=== PATIENT | male | born 1945 | race Caucasian/White ===

== ENCOUNTER 2017-05-14 13:15 | Outpatient (RCR) | payer OTHER, SELFPAY | END 2017-05-14 23:59 | LOC: PT 13:15 | PROVIDERS: Visit Provider Internal Medicine Cardiovascular Disease | DX: I25.2 Old myocardial infarction (principal) | CPT/HCPCS: 93798 ==

== ENCOUNTER 2020-03-17 16:02 | Emergency (ER) | payer MEDICARE, OTHER, SELFPAY ==
[2020-03-17 16:03] VITALS: BP 160/81; PULSE 84; RESP 17; TEMP 37; O2SAT 95; BMI 31.1
--- NOTE | 2020-03-17 16:08 | XR_ITS ---
PROCEDURE: XR FINGER LT MIN 2V Referring Doctor: Russ Sorto Patient Age:74Y CLINICAL INDICATION: table saw accident. COMPARISON: No exams were available for comparison FINDINGS: There has been amputation soft tissues at the tip of the thumb with associated with amputation of minimal bone distal tuft distal phalanx. Soft tissue dressing in bandages seen about this area. Otherwise note degenerative changes narrowing and sclerosis at the IP joint of thumb most evident at the radial aspect IMPRESSION: Amputation of soft tissues tip of thumb, along with distal tuft of distal phalanx left thumb Dictated by: Kasi Morris MD 03/17/2020 23:41 Kasi Morris MD in [place] 03/17/2020 23:41
--- NOTE | 2020-03-17 16:14 | HMH.EDGENADL ---
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 Go straight to emergency department at [facility] now to be seen by hand surgery. Keep the bandage on and elevate your hand during transport. Referrals: Provider,Referral, [Primary Care Provider] - - Critical Care Critical Care Time: No Attestation: On 03/17/20, the high probability of a clinically significant, sudden or life threatening deterioration of the following system(s) required my full and direct attention, intervention and personal management. The time I documented below is in addition to time spent performing reported procedures but includes the following listed in this critical care notation. Medical Decision Making - Medical Records Medical records reviewed: Yes: I reviewed the patient's medical records. MR Comment: Tetanus immunization at this facility last year - Paul Inquiry Pt receiving controlled substance: No Paul was queried for this patient: Yes Reference #:: [id number] Comment: 1 rx 5 oxycodone 04/12/19 Vital Signs: 03/17/20 16:03 03/17/20 16:59 Temperature 98.6 F Temperature Source Oral Pulse Rate [Right Radial] 84 66 Respiratory Rate 17 20 Blood Pressure [Right Arm] 160/81 H 113/70 Blood Pressure Mean [Right Arm] 107 84 Blood Pressure Source [Right Arm] Automatic Cuff Blood Pressure Position [Right Arm] Sitting 02 Sat by Pulse Oximetry 95 95 Oxygen Delivery Method Room Air - Lab Data Lab Results 03/17/20 16:25: WBC 6.9, RBC 3.75 L, Hgb 11.9 L, Hct 35.6 L, MCV 94.9 H, MCH 31.7 H, MCHC 33.4, RDW 19.7 H, Plt Count 156, MPV 8.6, Neut % (Auto) 66.1, Lymph % (Auto) 21.7, Garza % (Auto) 9.4 H, Eos % (Auto) 2.2, Baso % (Auto) 0.5, Neut # (Auto) 4.6, Lymph # (Auto) 1.5, Garza # (Auto) 0.7, Eos # (Auto) 0.2, Baso # (Auto) 0.0 03/17/20 16:25: Sodium 138, Potassium 4.4, Chloride 105, Carbon Dioxide 24, Anion Gap 13.4, BUN 23 H, Creatinine 1.40 H, Estimated Creat Clear 69, Estimated GFR 50 L, Est GFR ( Amer) 60, Glucose 103 H, Calcium 9.0 Result diagrams: 03/17/20 16:25 03/17/20 16:25 Orders (Tests/Meds): ED MEDICATIONS Generic Name Dose Route Start Last Admin Trade Name Freq PRN Reason Stop Dose Admin Cefazolin Sodium 2 gm/ Sodium 100 mls @ 200 mls/hr 03/17/20 16:53 03/17/20 16:58 Chloride IV 03/17/20 17:22 200 mls/hr ONCE ONE Administration Protocol ORDERS Category Date Time Status XR finger LT min 2V Stat Exams 03/17/20 16:08 Taken - Physician Consults Physician Consulted: Lincoln Time: 17:03 Reason -: Other (Hand surgery) Comment/Response: Transfer to [facility] emergency department. Irrigate wound and apply moist dressing. Medical Decision Narrative: Patient initially refused digital block. At 4:45 PM consents to digital block. General Adult HPI - General Chief complaint: Extremity Injury, Upper Stated complaint: lac left thumb Time Seen by Provider: 03/17/20 16:03 Mode of Arrival: Ambulatory Limitations: No Limitations Description of Symptoms (Recalled from ER Triage Doc. by RN): pt states he cut his left thumb while using a table saw. - History of Present Illness HPI narrative: Patient cut his left thumb tip off using a table saw. He says his last tetanus immunization was less than 5 years ago at the [facility]. He is not diabetic. He is left-hand dominant. - Related Data Home Medications Medication Instructions Recorded Confirmed alfuzosin 10 mg tablet,extended 10 mg PO DAILY 06/21/17 11/17/18 release 24 hr atorvastatin 80 mg tablet 80 mg PO DAILY 06/21/17 11/17/18 finasteride 5
[2020-03-17 16:37] LABS: Basophils % 0.5 % (0.1-2.0); Eosinophils # 0.2 K/mm3 (0.0-0.4); Eosinophils % 2.2 % (0.1-12.0); Hematocrit 35.6 % (42.0-52.0); Hemoglobin 11.9 g/dL (14.1-18.0); Lymphocytes # 1.5 K/mm3 (0.7-4.5); Lymphocytes % 21.7 % (10-50); Mean Corpuscular HGB Conc 33.4 g/dL (31.8-35.4); Mean Corpuscular Hemoglobin 31.7 pg (27.0-31.2); Mean Corpuscular Volume 94.9 fl (80-94); Mean Platelet Volume 8.6 fl (7.4-10.4); Monocytes # 0.7 K/mm3 (0.1-1.0); Monocytes % 9.4 % (1.7-9.3); Neutrophils # 4.6 K/mm3 (1.8-7.8); Neutrophils % 66.1 % (37.0-80.0); Platelet Count 156 K/mm3 (142-424); Red Blood Count 3.75 M/mm3 (4.60-6.20); Red Cell Distribution Width 19.7 % (11.5-17.5); White Blood Count 6.9 K/mm3 (4.8-10.8)
[2020-03-17 16:41] LABS: Chloride 105 mmol/L (98-107); Sodium 138 mmol/L (136-145)
[2020-03-17 16:42] LABS: Potassium 4.4 mmoL/L (3.5-5.1)
[2020-03-17 16:44] LABS: Blood Urea Nitrogen 23 mg/dl (9-20); Creatinine Clearance Estimated 69 mL/min (50-200); Estimated Glomerular Filt Rate 50 ml/min (>60); GFR (African American) 60 ML/MIN (>60)
[2020-03-17 16:45] LABS: Anion Gap 13.4 mEq/L (5-15); Carbon Dioxide 24 mmol/L (22.0-30.0); Glucose 103 mg/dl (74-100)
--- NOTE | 2020-03-17 16:58 | PC.NURSE ---
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
[2020-03-17 16:59] VITALS: BP 113/70; PULSE 66; RESP 20; O2SAT 95
--- NOTE | 2020-03-17 17:04 | PC.NURSE ---
Dr Sorto speaking with Dr Lincoln aviles
--- NOTE | 2020-03-17 17:34 | PC.NURSE ---
dr madrigal accepts transfer to [facility]. report called to ana m novoa, receiving rn at ed.
[2020-03-17 17:35] VITALS: BP 117/70; PULSE 69; RESP 17; TEMP 37; O2SAT 98
== END 2020-03-17 17:38 | disposition short-term general hospital (02) ==
PROVIDERS: Emergency Provider Emergency Medicine
DX: S68.022A Partial traumatic metacarpophalangeal amputation of left thumb, initial encounter (principal); W31.2XXA Contact with powered woodworking and forming machines, initial encounter; Y92.018 Other place in single-family (private) house as the place of occurrence of the external cause; J44.9 Chronic obstructive pulmonary disease, unspecified; E78.5 Hyperlipidemia, unspecified; I10 Essential (primary) hypertension; I25.2 Old myocardial infarction; F17.210 Nicotine dependence, cigarettes, uncomplicated
CPT/HCPCS: 73140; 80048; 85025; 96365; 99284

== ENCOUNTER 2020-09-10 13:47 | Emergency (ER) | payer MEDICARE, OTHER, SELFPAY ==
--- NOTE | 2020-09-10 13:43 | ECG_ITS ---
APPROVED REPORT Exam: Resting ECG HR:66 bpm ECG Measurements Heart Rate 66 AXES IL 178 P 48 QRSd 90 QRS 46 QT 438 T 32 QTc 459 Conclusion Normal sinus rhythm Possible Left atrial enlargement Borderline ECG Electronically signed by : Abelardo Meek, 09/11/2020 16:57:42
[2020-09-10 13:49] VITALS: BP 138/76; PULSE 65; RESP 20; TEMP 36.5; O2SAT 97; BMI 32.5
[2020-09-10 13:51] VITALS: BMI 39.0
--- NOTE | 2020-09-10 13:52 | XR_ITS ---
PROCEDURE: XR CHEST PORTABLE CLINICAL HISTORY: chest pain, SOA COMPARISON: CR CXR1 CHEST-PORTABLE from 03/09/2017 CR Chest from 11/17/2018 FINDINGS: The cardiomediastinal silhouette and pulmonary vascularity are within normal limits. The lungs are clear without infiltrates, suspicious nodules, or pleural effusions. Electronic device is noted over the left upper lobe laterally. No acute bony findings.. IMPRESSION: No acute findings. Dictated by: Manuel Quintero MD 09/10/2020 14:31 Manuel Quintero MD in [place] 09/10/2020 14:31
--- NOTE | 2020-09-10 13:55 | HMH.EDGENADL ---
ED Disposition Clinical Impression: Stable angina Chest pain Qualifiers: Chest pain type: unspecified Qualified Code(s): R07.9 - Chest pain, unspecified Disposition: Home, Self-Care Condition on Discharge: Good Additional Instructions: Take medications as directed. 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 Referrals: Provider,Referral, [Primary Care Provider] - 3 days Time of Disposition: 16:59 - Critical Care Critical Care Time: No Attestation: On 09/10/20, the high probability of a clinically significant, sudden or life threatening deterioration of the following system(s) required my full and direct attention, intervention and personal management. The time I documented below is in addition to time spent performing reported procedures but includes the following listed in this critical care notation. Medical Decision Making - Medical Records Medical records reviewed: Yes: I reviewed the patient's medical records. - Paul Inquiry Pt receiving controlled substance: No Vital Signs: 09/10/20 13:49 09/10/20 15:00 Temperature 97.7 F Temperature Source Oral Pulse Rate 59 L Pulse Rate [Apical] 65 Respiratory Rate 20 19 Blood Pressure 119/66 Blood Pressure [Right Arm] 138/76 Blood Pressure Mean 79 Blood Pressure Mean [Right Arm] 96 Blood Pressure Source [Right Arm] Automatic Cuff Blood Pressure Position [Right Arm] Sitting 02 Sat by Pulse Oximetry 97 94 L Oxygen Delivery Method Room Air - Lab Data Lab results reviewed: Yes: I reviewed the patient's lab results. Lab Results 09/10/20 13:50: WBC 6.7, RBC 3.63 L, Hgb 11.3 L, Hct 33.9 L, MCV 93.2, MCH 31.2, MCHC 33.5, RDW 20.4 H, Plt Count 161, MPV 8.2, Neut % (Auto) 67.1, Lymph % (Auto) 19.5, [place] % (Auto) 10.8 H, Eos % (Auto) 2.2, Baso % (Auto) 0.4, Neut # (Auto) 4.5, Lymph # (Auto) 1.3, [place] # (Auto) 0.7, Eos # (Auto) 0.2, Baso # (Auto) 0.0 09/10/20 13:50: Sodium 139, Potassium 4.5, Chloride 105, Carbon Dioxide 25, Anion Gap 13.5, BUN 28 H, Creatinine 1.50 H, Estimated Creat Clear 79, Estimated GFR 46 L, Est GFR ( Amer) 56 L, Glucose 116 H, Calcium 9.2, Troponin I < 0.01 09/10/20 16:10: Troponin I < 0.01 Result diagrams: 09/10/20 13:50 09/10/20 13:50 Orders (Tests/Meds): ED MEDICATIONS Discontinued Medications Generic Name Dose Route Start Last Admin Trade Name Amando PRN Reason Stop Dose Admin Aspirin 243 mg 09/10/20 13:52 09/10/20 14:55 Aspirin 81mg Chewable Tablet PO 09/10/20 13:53 243 mg ONCE ONE Administration ORDERS Category Date Time Status Troponin I Q3H Lab 09/10/20 20:00 Ordered - ECG Data Tracing #1 Normal sinus rhythm, 66 bpm, no ST elevation or depression, normal intervals, no ectopy. ECG initial impression date: 09/10/20 ECG initial impression time: 13:44 Normal Sinus Rhythm: No Medical Decision Narrative: 74yo M evaluated for chest pain. Differential diagnosis includes but not limited to: ACS/AL, PE, pneumonia, angina, anxiety, GERD, constipation, aortic injury. Patient is in no acute distress on initial evaluation. He is symptom-free at this time. EKG is reviewed as above. Routine cardiac work-up is initiated. Labs are unremarkable, troponin 0.01. Given cardiac history and proximity to onset of symptoms, repeat troponin is collected 2 hours later. Results 0.01. Patient klaudia asymptomatic and is appropriate stable for discharge home at this time. 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 General Adult HPI - General Stated complaint: chest pain Time Seen by Provider: 09/10/20 13:55 Mode of Arrival: Ambulatory - History of Present Illness HPI narrative: 74yo M presents to the emergency department secondary to chest pain. Patient reports symptoms began approximate hour prior to arrival. They were waxing waning in nature. He denies any radiation. Endorses shortness of breath. Denies diaphoresis, nausea or vomiting. Patient has cardiac hi
[2020-09-10 14:09] LABS: Chloride 105 mmol/L (98-107); Potassium 4.5 mmoL/L (3.5-5.1); Sodium 139 mmol/L (136-145)
[2020-09-10 14:12] LABS: Anion Gap 13.5 mEq/L (5-15); Blood Urea Nitrogen 28 mg/dl (9-20); Carbon Dioxide 25 mmol/L (22.0-30.0); Creatinine Clearance Estimated 79 mL/min (50-200); Estimated Glomerular Filt Rate 46 ml/min (>60); GFR (African American) 56 ML/MIN (>60)
[2020-09-10 14:13] LABS: Calcium 9.2 mg/dl (8.4-10.2); Glucose 116 mg/dl (74-100)
[2020-09-10 14:26] LABS: Basophils % 0.4 % (0.1-2.0); Eosinophils # 0.2 K/mm3 (0.0-0.4); Eosinophils % 2.2 % (0.1-12.0); Hematocrit 33.9 % (42.0-52.0); Hemoglobin 11.3 g/dL (14.1-18.0); Lymphocytes # 1.3 K/mm3 (0.7-4.5); Lymphocytes % 19.5 % (10-50); Mean Corpuscular HGB Conc 33.5 g/dL (31.8-35.4); Mean Corpuscular Hemoglobin 31.2 pg (27.0-31.2); Mean Corpuscular Volume 93.2 fl (80-94); Mean Platelet Volume 8.2 fl (7.4-10.4); Monocytes # 0.7 K/mm3 (0.1-1.0); Monocytes % 10.8 % (1.7-9.3); Neutrophils # 4.5 K/mm3 (1.8-7.8); Neutrophils % 67.1 % (37.0-80.0); Platelet Count 161 K/mm3 (142-424); Red Blood Count 3.63 M/mm3 (4.60-6.20); Red Cell Distribution Width 20.4 % (11.5-17.5); Troponin I < 0.01 ng/ml (0.00-0.034); White Blood Count 6.7 K/mm3 (4.8-10.8)
[2020-09-10 15:00] VITALS: BP 119/66; PULSE 59; RESP 19; O2SAT 94
[2020-09-10 16:48] LABS: Troponin I < 0.01 ng/ml (0.00-0.034)
[2020-09-10 17:18] VITALS: BP 134/76; PULSE 61; RESP 18; TEMP 36.5; O2SAT 95
== END 2020-09-10 17:18 | disposition home or self-care (01) ==
PROVIDERS: Emergency Provider Family Medicine
DX: I20.8 Other forms of angina pectoris (principal); E78.5 Hyperlipidemia, unspecified; I10 Essential (primary) hypertension; F33.1 Major depressive disorder, recurrent, moderate; K21.9 Gastro-esophageal reflux disease without esophagitis; I25.10 Atherosclerotic heart disease of native coronary artery without angina pectoris; J44.9 Chronic obstructive pulmonary disease, unspecified; Z79.899 Other long term (current) drug therapy
CPT/HCPCS: 36415; 71045; 80048; 84484; 85025; 93005; 99282

== ENCOUNTER 2021-12-25 11:05 | Emergency (ER) | payer MEDICARE, OTHER, SELFPAY ==
[2021-12-25] VITALS (10 sets, daily range): BP systolic 91–122; BP diastolic 48–63; PULSE 66–95; RESP 15–18; TEMP 36.6–36.8; O2SAT 98–100; BMI 29.2
--- NOTE | 2021-12-25 11:12 | ECG_ITS ---
APPROVED REPORT Exam: Resting ECG HR:76 bpm ECG Measurements Heart Rate 76 AXES RI 163 P 55 QRSd 101 QRS 61 QT 393 T 47 QTc 423 Conclusion SINUS RHYTHM WITH SINUS ARRHYTHMIA NORMAL ECG UNCONFIRMED REPORT Electronically signed by : Abelardo Meek MD 12/26/2021 17:05:15
--- NOTE | 2021-12-25 11:41 | PC.NURSE ---
ED MD at for patient eval
--- NOTE | 2021-12-25 11:44 | XR_ITS ---
FINAL REPORT CLINICAL HISTORY: lightheaded COMPARISON: September 10, 2020 FINDINGS: A single portable view of the chest was obtained. The heart size and pulmonary vascularity are within normal limits. The mediastinum is within normal limits. No acute pulmonary abnormality is identified. The bony thorax is intact. IMPRESSION: No active cardiopulmonary disease. Reviewed, Interpreted and Dictated by Mauro Ahumada III, MD Transcribed by Patricia Lim Authenticated and [facility]
--- NOTE | 2021-12-25 11:51 | CT_ITS ---
FINAL REPORT CLINICAL HISTORY: new headache, light headed COMPARISON: March 08, 2017 FINDINGS: Axial images of the head were obtained without contrast. Coronal reformatted images were also obtained. This study was performed with techniques to keep radiation doses as low as reasonably achievable (ALARA). Individualized dose reduction techniques using automated exposure control or adjustment of mA and/or kV according to the patient's size were employed. There is generalized age appropriate atrophy. There is no evidence of intracranial hemorrhage or mass. The ventricular size is within normal limits. There is no evidence of shift of the midline structures. No skull abnormality is seen on the bone window images. IMPRESSION: No acute intracranial abnormality. Reviewed, Interpreted and Dictated by Mauro Ahumada III, MD Transcribed by Patricia Lim Authenticated and . [facility]
--- NOTE | 2021-12-25 11:53 | PC.NURSE ---
Radiology at BS for portable chest xr
--- NOTE | 2021-12-25 11:59 | PC.NURSE ---
pt to CT via stretcher
[2021-12-25 12:00] LABS: Basophils # 0.1 K/mm3 (0-0.2); Basophils % 0.6 % (0.1-2.0); Chloride 106 mmol/L (98-107); Eosinophils # 0.1 K/mm3 (0.0-0.4); Eosinophils % 1.4 % (0.1-12.0); Hematocrit 34.4 % (42.0-52.0); Hemoglobin 11.5 g/dL (14.1-18.0); Lymphocytes # 1.1 K/mm3 (0.7-4.5); Lymphocytes % 14.8 % (10-50); Mean Corpuscular HGB Conc 33.4 g/dL (31.8-35.4); Mean Corpuscular Hemoglobin 32.7 pg (27.0-31.2); Mean Corpuscular Volume 98.1 fl (80-94); Mean Platelet Volume 8.8 fl (7.4-10.4); Monocytes # 0.7 K/mm3 (0.1-1.0); Monocytes % 9.3 % (1.7-9.3); Neutrophils # 5.6 K/mm3 (1.8-7.8); Neutrophils % 73.9 % (37.0-80.0); Platelet Count 224 K/mm3 (142-424); Potassium 4.8 mmoL/L (3.5-5.1); Red Blood Count 3.51 M/mm3 (4.60-6.20); Red Cell Distribution Width 20.7 % (11.5-17.5); Sodium 140 mmol/L (136-145); White Blood Count 7.5 K/mm3 (4.8-10.8)
--- NOTE | 2021-12-25 12:01 | PC.NURSE ---
to ct per stretcher
[2021-12-25 12:02] LABS: Alanine Aminotransferase 39 U/L (12-78); Aspartate Amino Transferase 45 U/L (17-59); Blood Urea Nitrogen 39 mg/dl (9-20); Creatinine Clearance Estimated 47 mL/min (50-200); Estimated Glomerular Filt Rate 35 ml/min (>60); GFR (African American) 42 ML/MIN (>60); Lipase 167 U/L (23-300)
[2021-12-25 12:03] LABS: Alanine Aminotransferase 38 U/L (12-78); Albumin Level 4.6 g/dl (3.5-5.0); Albumin Level 4.7 g/dl (3.5-5.0); Albumin/Globulin Ratio 1.6 (1.1-1.8); Alkaline Phosphatase 75 U/L (38-126); Alkaline Phosphatase 77 U/L (38-126); Anion Gap 13.8 mEq/L (5-15); Aspartate Amino Transferase 45 U/L (17-59); Bilirubin,Direct 0.7 mg/dl (0.0-0.4); Bilirubin,Indirect 2.2 mg/dL (0.0-0.9); Bilirubin,Total 2.9 mg/dl (0.2-1.3); Bilirubin,Unconjugated 2.2 mg/dL (0.0-1.1); Calcium 9.3 mg/dl (8.4-10.2); Carbon Dioxide 25 mmol/L (22.0-30.0); Globulin 2.8 g/dL (1.3-3.2); Glucose 112 mg/dl (74-100); Total Protein,Serum 7.4 g/dl (6.3-8.2)
[2021-12-25 12:04] LABS: Total Protein,Serum 7.4 g/dl (6.3-8.2)
[2021-12-25 12:09] LABS: Coronavirus 19, PCR Not Detected (NotDetected); Influenza A, PCR Not Detected (NotDetected); Influenza B, PCR Not Detected (NotDetected)
[2021-12-25 12:15] LABS: Troponin I < 0.01 ng/ml (0.00-0.034)
--- NOTE | 2021-12-25 12:15 | HMH.EDGENADL ---
ED Disposition Clinical Impression: Vertigo, Lightheadedness Disposition: Home, Self-Care Condition on Discharge: Good Instructions: Combating Dizziness in Older Adults, Vertigo, DI for Vertigo Additional Instructions: You were evaluated in the emergency department today for lightheadedness and dizziness. At this time, we feel that this is likely due to vertigo. shipping support clerk your prescription for meclizine and take as prescribed. Follow-up with your primary care provider over the next 48 hours. Make sure you stay orally hydrated. Return to the emergency department for any new or worsening symptoms, such as chest pain, lightheadedness, fainting, or other concerns. Prescriptions: Meclizine HCl [Meclizine 25mg Tab] 25 mg PO BIDP PRN #20 tab PRN Reason: Dizziness Transmission Status: Received by [facility] #[id number] Referrals: Meera Nolasco [Referring] - - Critical Care Critical Care Time: No Attestation: On 12/25/21, the high probability of a clinically significant, sudden or life threatening deterioration of the following system(s) required my full and direct attention, intervention and personal management. The time I documented below is in addition to time spent performing reported procedures but includes the following listed in this critical care notation. Medical Decision Making - Paul Inquiry Pt receiving controlled substance: No Vital Signs: 12/25/21 11:05 12/25/21 11:20 12/25/21 11:31 Temperature 98.2 F Temperature Source Oral Pulse Rate 73 76 Pulse Rate [Orthostatic Lying Radial] Pulse Rate [Orthostatic Standing Radial] Pulse Rate [Radial] 76 Respiratory Rate 16 Blood Pressure 101/54 L 111/63 Blood Pressure [Orthostatic Lying Right Arm] Blood Pressure [Orthostatic Standing] Blood Pressure [Right Arm] 101/54 L Blood Pressure Mean 69 79 Blood Pressure Mean [Right Arm] 69 Blood Pressure Position Blood Pressure Position [Right Arm] Sitting 02 Sat by Pulse Oximetry 98 98 99 Oxygen Delivery Method Room Air Room Air 12/25/21 11:47 12/25/21 12:31 12/25/21 13:00 Temperature Temperature Source Pulse Rate 72 66 Pulse Rate [Orthostatic Lying Radial] 76 Pulse Rate [Orthostatic Standing Radial] 95 H Pulse Rate [Radial] Respiratory Rate 15 15 Blood Pressure 116/56 L 99/56 L Blood Pressure [Orthostatic Lying Right Arm] 101/54 L Blood Pressure [Orthostatic Standing] 91/48 L Blood Pressure [Right Arm] Blood Pressure Mean 64 70 Blood Pressure Mean [Right Arm] Blood Pressure Position Blood Pressure Position [Right Arm] 02 Sat by Pulse Oximetry 100 99 Oxygen Delivery Method Room Air Room Air 12/25/21 14:00 12/25/21 14:30 12/25/21 15:00 Temperature Temperature Source Pulse Rate 72 68 74 Pulse Rate [Orthostatic Lying Radial] Pulse Rate [Orthostatic Standing Radial] Pulse Rate [Radial] Respiratory Rate 18 Blood Pressure 122/54 L 110/51 L 101/53 L Blood Pressure [Orthostatic Lying Right Arm] Blood Pressure [Orthostatic Standing] Blood Pressure [Right Arm] Blood Pressure Mean 71 69 66 Blood Pressure Mean [Right Arm] Blood Pressure Position Blood Pressure Position [Right Arm] 02 Sat by Pulse Oximetry 98 98 99 Oxygen Delivery Method Room Air Room Air Room Air 12/25/21 15:50 Temperature 98 F Temperature Source Oral Pulse Rate 68 Pulse Rate [Orthostatic Lying Radial] Pulse Rate [Orthostatic Standing Radial] Pulse Rate [Radial] Respiratory Rate 16 Blood Pressure 101/48 L Blood Pressure [Orthostatic Lying Right Arm] Blood Pressure [Orthostatic Standing] Blood Pressure [Right Arm] Blood Pressure Mean Blood Pressure Mean [Right Arm] Blood Pressure Position Sitting Blood Pressure Position [Right Arm] 02 Sat by Pulse Oximetry Oxygen Delivery Method Room Air - Lab Data Lab Results 12/25/21 11:33: WBC 7.5, RBC 3.51 L, Hgb 11.5 L, Hct 34.4 L, MCV 98.1 H, MCH 32.7 H, MCHC 33.4, R
[2021-12-25 12:49] LABS: Lactic Acid 1.4 mmol/L (0.7-2.1)
--- NOTE | 2021-12-25 13:18 | CT_ITS ---
FINAL REPORT TECHNIQUE: Thin section axial CT with IV contrast supplemented with multiplanar reconstruction under CT angiogram protocol. This study was performed with techniques to keep radiation doses as low as reasonably achievable (ALARA). Individualized dose reduction techniques using automated exposure control or adjustment of mA and/or kV according to the patient''s size were employed. NASCET criteria was utilized during interpretation. CLINICAL HISTORY: sudden onset dizziness FINDINGS: Suboptimal contrast opacification. There is moderate calcification at the carotid bulbs bilaterally with mild bilateral stenoses, less than 50%. The more distal ICAs are patent. The ECAs are patent. The vertebral arteries are patent and codominant. IMPRESSION: Moderate calcification at the carotid bulbs bilaterally with mild bilateral stenoses, less than 50%. Reviewed, Interpreted and Dictated by Mauro Ahumada III, MD Transcribed by Boby Duarte Authenticated and [facility]
--- NOTE | 2021-12-25 13:18 | CT_ITS ---
FINAL REPORT TECHNIQUE: Thin section axial CT with IV contrast supplemented with multiplanar reconstruction under CT angiogram protocol. 3-D reconstructions were performed. This study was performed with techniques to keep radiation doses as low as reasonably achievable (ALARA). Individualized dose reduction techniques using automated exposure control or adjustment of mA and/or kV according to the patient''s size were employed. CLINICAL HISTORY: sudden onset dizziness FINDINGS: There is suboptimal contrast opacification. No aneurysm is seen. Major intracranial vessels are patent without significant stenosis. IMPRESSION: No significant stenosis or aneurysm. Reviewed, Interpreted and Dictated by Mauro Ahumada III, MD Transcribed by Boby Duarte Authenticated and [facility]
--- NOTE | 2021-12-25 14:20 | PC.NURSE ---
Pt sitting on ED stretcher with family at BS. Call light within reach. Aware that we are waiting on imaging results at this time.
--- NOTE | 2021-12-25 14:41 | PC.NURSE ---
Rounded on patient at this time. Patient is lying on ED stretcher with family at BS. Both patient and family report no needs at this time and are aware that we are waiting on imaging results. Call light within reach
--- NOTE | 2021-12-25 15:04 | PC.NURSE ---
Got patient up and walked around room, pt says feeling better more he walks.
[2021-12-25 15:15] LABS: Troponin I < 0.01 ng/ml (0.00-0.034)
== END 2021-12-25 15:50 | disposition home or self-care (01) ==
PROVIDERS: Emergency Provider Emergency Medicine
DX: R42 Dizziness and giddiness (principal); R06.02 Shortness of breath; R53.1 Weakness; I48.92 Unspecified atrial flutter; R19.7 Diarrhea, unspecified; R11.0 Nausea; Z20.822 Contact with and (suspected) exposure to COVID-19; D64.9 Anemia, unspecified; R51.9 Headache, unspecified; I95.9 Hypotension, unspecified; I10 Essential (primary) hypertension; I25.10 Atherosclerotic heart disease of native coronary artery without angina pectoris; I25.2 Old myocardial infarction; E78.5 Hyperlipidemia, unspecified; J44.9 Chronic obstructive pulmonary disease, unspecified; F17.200 Nicotine dependence, unspecified, uncomplicated; Z79.82 Long term (current) use of aspirin; Z79.899 Other long term (current) drug therapy; Z82.49 Family history of ischemic heart disease and other diseases of the circulatory system
CPT/HCPCS: 70450; 70496; 70498; 71045; 80053; 80076; 83605; 83690; 84484; 85025; 93005; 96361; 96374; 99285; C9803; J2405; Q9967; U0003; U0005

== ENCOUNTER 2022-07-08 18:42 | Emergency (ER) | payer MEDICARE, OTHER, SELFPAY ==
--- NOTE | 2022-07-08 18:59 | EXP.UTC ---
Discharge Plan Disposition Patient Disposition: Home, Self-Care Condition: Good Prescriptions Prescriptions: New benzonatate [benzonatate] 100 mg capsule 100 mg PO TIDP PRN (Reason: Cough) Qty: 30 0RF Paxlovid (EUA) 300 mg (150 mg x 2)-100 mg tablet See Rx Instructions .ROUTE .COMPLEX Qty: 30 0RF Rx Instructions: take TWO 150 mg tablets of nirmatrelvir with ONE 100 mg tablet of ritonavir twice daily for 5 days No Action atorvastatin 80 mg tablet 80 mg PO DAILY isosorbide mononitrate 60 mg tablet extended release 24 hr 60 mg PO DAILY lisinopril 10 mg tablet 5 mg PO DAILY metoprolol tartrate 50 mg tablet 50 mg PO BID nitroglycerin 0.4 mg tablet, sublingual 0.4 mg SUBLINGUAL Q5M PRN (Reason: cp) sertraline 100 MG tablet 100 mg PO DAILY amlodipine 5 MG tablet 5 mg PO DAILY aspirin 81 MG tablet,delayed release (DR/EC) 81 mg PO DAILY ranolazine 1,000 MG tablet extended release 12 hr 1,000 mg PO BID meclizine 25 MG tablet,chewable 25 mg PO BIDP PRN (Reason: Dizziness) Qty: 20 0RF Activity Restrictions/Add. Instructions Additional Instructions/Restrictions: Take tylenol for pain or fever. Take the medications as directed. Follow up with your regular doctor. GO TO THE ER FOR ANY WORSENING SYMPTOMS Clinical Impressions Clinical Impression: COVID-19 Instructions Patient Instructions: Coronavirus Disease 2019, Preventing the Spread of Coronavirus Discharge Instructions Dis[place] ED [place] Sotero Mercedes [facility] [place] General Stated complaint: Expossed Covid Home+ SOB,Lost of smell&Taste Time Seen by Provider: 07/08/22 18:59 History of Present Illness Provider Complaint: He states that over the past 3 days he has lost his sense of smell and he has felt bad. HE was exposed to covid-19 about 5 days ago. He denies shortness of breath. Related Data Home Medications Medication Instructions Recorded Confirmed atorvastatin 80 mg tablet 80 mg PO DAILY lipids 06/21/17 09/10/20 isosorbide mononitrate 60 mg 60 mg PO DAILY htn 06/21/17 09/10/20 tablet,extended release 24 hr lisinopril 10 mg tablet 5 mg PO DAILY htn 06/21/17 09/10/20 metoprolol tartrate 50 mg tablet 50 mg PO BID htn 06/21/17 09/10/20 nitroglycerin 0.4 mg sublingual 0.4 mg sublingual Q5M PRN cp 06/21/17 11/17/18 tablet amlodipine 5 mg tablet 5 mg PO DAILY bp 09/10/20 09/10/20 aspirin 81 mg tablet,delayed 81 mg PO DAILY heart health 09/10/20 09/10/20 release ranolazine 1,000 mg 1,000 mg PO BID angina 09/10/20 09/10/20 tablet,extended release,12 hr sertraline 100 mg tablet 100 mg PO DAILY . 09/10/20 09/10/20 Previous Rx's Medication Instructions Recorded meclizine 25 mg chewable tablet 25 mg PO BIDP PRN Dizziness #20 12/25/21 tabs benzonatate 100 mg capsule 100 mg PO TIDP PRN Cough #30 caps 07/08/22 nirmatrelvir 300 mg (150 mg See Rx Instructions PO .COMPLEX 07/08/22 x2)-ritonavir 100 mg tablet,dose #30 tabs pack(EUA) (Paxlovid) Allergies Allergy/AdvReac Type Severity Reaction Status Date / Time No Known Allergies Allergy Verified 07/08/22 19:11 [facility] Disclaimer: The information contained in this section may have been updated after the patient was seen, as this information can be updated by other users. Social History Smoking Status: Current every day smoker alcohol intake: never current occupational status: retired Travel in the last 8 weeks: None household members: children housing: house ROS Obtained: Yes All systems reviewed & no additional complaints except as documented Constitutional Constitutional: Reports chills and Reports fever(s) Eyes Eyes: Denies eye discharge ENT Ears, Nose, Mouth, and Throat: Reports as per HPI Cardiovascular Cardiovascular: Denies chest pain Respiratory Respiratory: Denies chest congestion and Reports cough Gastrointestin
[2022-07-08 19:00] VITALS: BP 158/91; PULSE 103; RESP 20; TEMP 38; O2SAT 95; BMI 30.6
[2022-07-08 20:13] VITALS: BP 158/91; PULSE 103; RESP 20; TEMP 37.3; O2SAT 95
== END 2022-07-08 20:13 | disposition home or self-care (01) ==
PROVIDERS: Emergency Provider Nurse Practitioner Family
DX: U07.1 COVID-19 (principal); R06.02 Shortness of breath; R43.8 Other disturbances of smell and taste
CPT/HCPCS: 99212; 99213; C9803; G0463; U0003; U0005

== ENCOUNTER 2023-06-19 18:00 | Observation (INO) | payer MEDICARE, OTHER, SELFPAY ==
[2023-06-19] VITALS (9 sets, daily range): BP systolic 110–128; BP diastolic 58–66; PULSE 80–96; RESP 12–20; TEMP 36.7; O2SAT 94–99; BMI 28.7
--- NOTE | 2023-06-19 18:05 | PC.NURSE ---
DR HERNANDEZ AT BEDSIDE
--- NOTE | 2023-06-19 18:14 | XR_ITS ---
PROCEDURE INFORMATION: Exam: XR Chest Exam date and time: 06/19/2023 6:12 PM Age: 77 years old Clinical indication: Shortness of breath; Additional info: Svt, SOA TECHNIQUE: Imaging protocol: Radiologic exam of the chest. Views: 1 view. COMPARISON: CR XR CHEST PORTABLE 25/12/2021 12:02 FINDINGS: Lungs: Mild pulmonary scarring. Stigmata of old granulomatous disease. Pleural spaces: Unremarkable. No pleural effusion. No pneumothorax. Heart/Mediastinum: Unremarkable. No cardiomegaly. Vasculature: Vascular calcifications. Bones/joints: Unchanged chronic left AC joint separation. IMPRESSION: No acute findings.
--- NOTE | 2023-06-19 18:15 | PC.NURSE ---
XR AT BEDSIDE
--- NOTE | 2023-06-19 18:16 | ED_ITS ---
Discharge Plan Disposition Patient Disposition: Admitted Prescriptions Prescriptions: Discontinued amlodipine 5 MG tablet 10 mg PO DAILY No Action atorvastatin 80 mg tablet 80 mg PO DAILY isosorbide mononitrate 60 mg tablet extended release 24 hr 60 mg PO DAILY lisinopril 10 mg tablet 5 mg PO DAILY metoprolol tartrate 50 mg tablet 50 mg PO BID sertraline 100 MG tablet 150 mg PO DAILY ranolazine 1,000 MG tablet extended release 12 hr 1,000 mg PO BID benzonatate [benzonatate] 100 mg capsule 100 mg PO TIDP PRN (Reason: Cough) Qty: 30 0RF Referrals Follow up/Referrals: Provider,Referral, MD [Primary Care Provider] - See instructions Clinical Impressions Clinical Impression: SVT (supraventricular tachycardia), Non-ST elevation [place] (NSTEMI) Discharge ED Provider: Charles Victor [facility] General Chief Complaint: Arrhythmia/Palpitations Stated Complaint: CHEST PAIN Time Seen by Provider: 06/19/23 18:00 History of Present Illness HPI narrative: Patient is a 77-year-old male with past medical history of coronary artery disea se status post heart catheterization with medical management, no stents, hypertension, hyperlipidemia, previous SVT status post cardioversion who presents emergency department for evaluation of rapid heart rate and chest pain. History is obtained by patient at bedside and per EMS report. Patient earlier today was at home when he felt chest pain, stomach pain which was relieved by vomiting. Subsequently this afternoon patient had another episode of chest pain and stomach pain. Upon mission support specialist arrival patient was in SVT and had an episode of vomiting with spontaneous conversion. He has had large resolution of symptoms prior to arrival, no abdominal pain, no ongoing chest pain. He presents here for continued evaluation. Patient medication rec he is on amlodipine, isosorbide mononitrate, lisinopril, metoprolol. Related Data Home Medications Medication Instructions Recorded Confirmed atorvastatin 80 mg tablet 80 mg PO DAILY lipids 06/21/17 06/19/23 isosorbide mononitrate 60 mg 60 mg PO DAILY htn 06/21/17 06/19/23 tablet,extended release 24 hr lisinopril 10 mg tablet 5 mg PO DAILY htn 06/21/17 06/19/23 metoprolol tartrate 50 mg tablet 50 mg PO BID htn 06/21/17 06/19/23 ranolazine 1,000 mg 1,000 mg PO BID angina 09/10/20 06/19/23 tablet,extended release,12 hr sertraline 100 mg tablet 150 mg PO DAILY . 09/10/20 06/19/23 Previous Rx's Medication Instructions Recorded benzonatate 100 mg capsule 100 mg PO TIDP PRN Cough #30 caps 07/08/22 Allergies Allergy/AdvReac Type Severity Reaction Status Date / Time No Known Allergies Allergy Verified 07/08/22 19:11 [facility] Disclaimer: The information contained in this section may have been updated after the patient was seen, as this information can be updated by other users. Social History Smoking Status: Current every day smoker alcohol intake: never current occupational status: retired Travel in the last 8 weeks: None household members: children housing: house ROS Obtained: Yes Systems reviewed as appropriate & no additional complaints except as documented Physical Exam General General appearance: alert and in no apparent distress Head Head exam: atraumatic and normocephalic Eye Eye exam: Present PERRL and EOMI ENT ENT exam: Present mucous membranes moist Neck Neck exam: Present normal inspection Chest Chest inspection: Present normal inspection and symmetric chest wall rise Respiratory Respiratory exam: Present normal lung sounds bilaterally; Absent respiratory distress Cardiovascular Cardiovascular exam: Present regular rate and normal rhythm Abdominal Exam Abdominal exam: Present soft; Absent tenderness Extremities Exam Extremities exam: Present normal inspection Neurological Exam Neurological exam: Present alert Psychiatric Psychiatric exam: Present normal affect Skin Skin exam: Present warm and dry HEART Score HEART Score HEART Score assessment performed?: Yes History (anamnesis): Moderately suspicious ECG: Normal Age: >65 years Risk factors: Atherosclerosis history Troponin: > 3x normal limit HEART Score: 7 Critical Care Critical Care Time Critical Care Time: No Medical Decision Making Paul Inquiry Pt receiving controlled substance: No Vital Signs Vital Signs: 06/19/23 18:00 06/19/23 19:00 06/19/23 19:30 Temperature 98.0 F Temperature Source Oral Pulse Rate 91 H 91 H Pulse Rate [Apical] 96 H Respiratory Rate 16 18 20 Blood Pressure 126/64 123/66 Blood Pressure [Right Arm] 110/63 Blood Pressure Mean [Right Arm] 78 Blood Pressure Source [Right Arm] Automatic Cuff Blood Pressure Position [Right Arm] Sitting 02 Sat by Pulse Oximetry 97 97 95 Oxygen Delivery Method Room Air Room Air 06/19/23 20:00 06/19/23 20:30 Temperature Temperature Source Pulse Rate 88 88 Pulse Rate [Apical] Respiratory Rate 12 19 Blood Pressure 115/58 L 127/65 Blood Pressure [Right Arm] Blood Pressure Mean [Right Arm] Blood Pressure Source [Right Arm] Blood Pressure Position [Right Arm] 02 Sat by Pulse Oximetry 94 L 96 Oxygen Delivery Method Lab Data Labs: Lab Results 06/19/23 18:05: WBC 12.8 H, RBC 3.92 L, Hgb 12.2 L, Hct 37.3 L, MCV 95.1 H, MCH 31.1, MCHC 32.7, RDW 22.1 H, Plt Count 211, MPV 8.8, Neut % (Auto) 85.1 H, Lymph % (Auto) 7.4 L, [place] % (Auto) 6.1, Eos % (Auto) 1.1, Baso % (Auto) 0.3, Neut # (Auto) 10.9 H, Lymph # (Auto) 0.9, [place] # (Auto) 0.8, Eos # (Auto) 0.1, Baso # (Auto) 0.0, Total Counted 100, Neutrophils % (Manual) 87 H, Lymphocytes % (Manual) 10, Monocytes % (Manual) 2, Eosinophils % (Manual) 1, Platelet Estimate Normal, RBC Morphology Normal, Sodium 139, Potassium 4.4, Chloride 105, Carbon Dioxide 22, Anion Gap 16.4 H, BUN 34 H, Creatinine 1.60 H, Estimated Creat Clear 53, Estimated GFR 42 L, Est GFR ( Amer) 51 L, Glucose 116 H, Calcium 8.9, Magnesium 1.8, Total Bilirubin 3.6 H, AST 39, ALT 33, Alkaline Phosphatase 77, Troponin I < 0.01, Total Protein 7.7, Albumin 4.7, Globulin 3.0, Albumin/Globulin Ratio 1.6, Lipase 330 H, TSH 4.09, Thyroxine (T4) 7.5 06/19/23 20:50: Troponin I 0.11 H 06/19/23 18:05 06/19/23 18:05 Response Orders (Tests/Meds): ED MEDICATIONS Discontinued Medications Generic Name Dose Route Start Last Admin Trade Name Freq PRN Reason Stop Dose Admin Diltiazem HCl 180 mg 06/19/23 20:49 06/19/23 21:06 Diltiazem Hcl 180mg Cap.Er.24h PO 06/19/23 20:50 180 mg DAILY ONE Administration ORDERS Category Date Time Status CXR --portable [XR chest portable] Stat Exams 06/19/23 18:14 Completed CBC w/Auto Diff [Complete Blood Count Auto Diff] Stat Lab 06/19/23 18:05 Completed CMP [Comprehensive Metabolic Panel] Stat Lab 06/19/23 18:05 Completed Lipase Stat Lab 06/19/23 18:05 Completed MG [Magnesium] Stat Lab 06/19/23 18:05 Completed T4 (Thyroxine) Stat Lab 06/19/23 18:05 Completed TSH [Thyroid Stimulating Hormone] Stat Lab 06/19/23 18:05 Completed Trop I [Troponin I] Stat Lab 06/19/23 18:05 Completed Troponin I Q3H Lab 06/19/23 20:50 Completed Troponin I Q3H Lab 06/20/23 00:15 Ordered EKG Request [ECG Request] Stat Y 06/19/23 21:27 Ordered ECG Data Tracing #1: ECG Narrative: Independently interpreted by me, rate is 95, rhythm is regular, axis is normal, no ST elevation in anatomical contiguous leads, QTc 414. Tracing #2: ECG Narrative: Independently interpreted by me, rate is 85, rhythm is regular, axis is normal, no ST elevation in anatomical contiguous leads, QTc 407. MDM Narrative Medical Decision Narrative: In summary patient is a 77-year-old male with past medical history described above who presents emergency department for evaluation of chest pain, abdominal pain that was relieved with vomiting in the setting of tachycardia prehospital validated prior to arrival. Patient is hemodynamically stable nontoxic- appearing upon arrival, afebrile. Prehospital EKG independently visualized by me, patient was in SVT with narrow complex tachycardia, ST depression in the lateral leads with ST elevation isolated in lead III. Immediate EKG was performed at bedside which shows normal sinus rhythm without ST elevation or depression in anatomical contiguous leads. Given this patient likely had SVT with demand ischemia, was abated with vagal maneuver secondary to vomiting. Differential includes ACS, among others. Workup will be conducted with hematologic labs, chest x-ray, EKG. Patient will undergo cardiac monitoring. Initial workup reviewed by me, hematologic labs are nonactionable, no critical electrolyte abnormality, stable CKD, no elevated troponin, slightly elevated lipase. The case was discussed with Dr. Case who recommends discontinuing amlodipine and initiating diltiazem which first oral dose will be given. hand booked folder and stitcher at 2020 shows rate of 90, sinus rhythm. Serial troponins have significant delta. Given this patient will benefit from admission for serial troponins and cardiology evaluation, Dr. Case agrees with this. Case was discussed with hospital medicine regarding management patient will be admitted to their service for continued evaluation at this time.
[2023-06-19 18:24] LABS: Chloride 105 mmol/L (98-107)
[2023-06-19 18:25] LABS: Potassium 4.4 mmoL/L (3.5-5.1); Sodium 139 mmol/L (136-145)
[2023-06-19 18:27] LABS: Alanine Aminotransferase 33 U/L (12-78); Alkaline Phosphatase 77 U/L (38-126); Aspartate Amino Transferase 39 U/L (17-59); Basophils % 0.3 % (0.1-2.0); Bilirubin,Total 3.6 mg/dl (0.2-1.3); Blood Urea Nitrogen 34 mg/dl (9-20); Creatinine Clearance Estimated 53 mL/min (50-200); Eosinophils # 0.1 K/mm3 (0.0-0.4); Eosinophils % 1.1 % (0.1-12.0); Estimated Glomerular Filt Rate 42 ml/min (>60); GFR (African American) 51 ML/MIN (>60); Hematocrit 37.3 % (42.0-52.0); Hemoglobin 12.2 g/dL (14.1-18.0); Lymphocytes # 0.9 K/mm3 (0.7-4.5); Lymphocytes % 7.4 % (10-50); Mean Corpuscular HGB Conc 32.7 g/dL (31.8-35.4); Mean Corpuscular Hemoglobin 31.1 pg (27.0-31.2); Mean Corpuscular Volume 95.1 fl (80-94); Mean Platelet Volume 8.8 fl (7.4-10.4); Monocytes # 0.8 K/mm3 (0.1-1.0); Monocytes % 6.1 % (1.7-9.3); Neutrophils # 10.9 K/mm3 (1.8-7.8); Neutrophils % 85.1 % (37.0-80.0); Platelet Count 211 K/mm3 (142-424); Red Blood Count 3.92 M/mm3 (4.60-6.20); Red Cell Distribution Width 22.1 % (11.5-17.5); White Blood Count 12.8 K/mm3 (4.8-10.8)
[2023-06-19 18:28] LABS: Albumin Level 4.7 g/dl (3.5-5.0); Albumin/Globulin Ratio 1.6 (1.1-1.8); Anion Gap 16.4 mEq/L (5-15); Calcium 8.9 mg/dl (8.4-10.2); Carbon Dioxide 22 mmol/L (22.0-30.0); Glucose 116 mg/dl (74-100); Lipase 330 U/L (23-300); MANUAL DIFFERENTIAL MANUAL DIFFERENTIAL (MANUAL DIFF); Magnesium 1.8 mg/dl (1.6-2.3); Total Protein,Serum 7.7 g/dl (6.3-8.2)
[2023-06-19 18:44] LABS: Troponin I < 0.01 ng/ml (0.00-0.034)
[2023-06-19 18:45] LABS: T4 (Thyroxine) 7.5 ug/dl (5.53-11.0)
[2023-06-19 18:59] LABS: Thyroid Stimulating Hormone 4.09 uIU/mL (0.465-4.68)
[2023-06-19 19:06] LABS: Eosinophils % 1 % (0-3); Lymphocytes % 10 % (10-50); Monocytes % 2 % (2-9); Neutrophils % 87 % (42-76); Platelet Estimate Normal; Total Cells Counted 100
[2023-06-19 19:07] LABS: RBC Morphology Normal
[2023-06-19] MEDS: dilTIAZem HCL 180MG CAP.ER.24H 180 MG PO (21:06)
[2023-06-19 21:20] LABS: Troponin I 0.11 ng/ml (0.00-0.034)
--- NOTE | 2023-06-19 21:27 | ECG_ITS ---
APPROVED REPORT Exam: Resting ECG HR:95 bpm ECG Measurements Heart Rate 95 AXES NC 177 P 46 QRSd 95 QRS 47 QT 361 T 38 QTc 414 Conclusion SINUS RHYTHM NORMAL ECG UNCONFIRMED REPORT Electronically signed by : Abelardo Meek MD 06/20/2023 14:32:23
--- NOTE | 2023-06-19 21:27 | ECG_ITS ---
APPROVED REPORT Exam: Resting ECG HR:85 bpm ECG Measurements Heart Rate 85 AXES RI 191 P 42 QRSd 92 QRS 22 QT 365 T 17 QTc 407 Conclusion SINUS RHYTHM MINIMAL VOLTAGE CRITERIA FOR LVH, CONSIDER NORMAL VARIANT [MEETS CRITERIA IN ONE OF: R(aVL), S(V1), R(V5), R(V5/V6)+S(V1)] BORDERLINE ECG UNCONFIRMED REPORT Electronically signed by : Abelardo Meek MD 06/20/2023 14:31:46
--- NOTE | 2023-06-19 21:28 | PC.NURSE ---
call placed to [facility]. [facility] speaking with him at this time
--- NOTE | 2023-06-19 21:44 | PC.NURSE ---
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 Pt being admitted to hospitalist for SVT and NSTEMI
[2023-06-19] MEDS: ASPIRIN 81MG CHEWABLE TABLET 324 MG PO (21:45)
--- NOTE | 2023-06-19 22:18 | EXP.HP ---
History of Present Illness *Admission Date: 06/19/23 *Reason for visit:: CP *History of present illness: This is a 77-year-old male with PMHx of coronary artery disease status post heart catheterization with medical management, no stents, hypertension, hyperlipidemia, previous SVT status post cardioversion who was brought in by EMS to the ED for evaluation of rapid heart rate and chest pain. History is obtained from patient at bedside, as well as ED and EMS report. Patient earlier today was at home when he felt chest pain, stomach pain which was relieved by vomiting. Subsequently this afternoon patient had another episode of chest pain and stomach pain. Upon inbound call center agent arrival patient was in SVT and had an episode of vomiting with spontaneous conversion. He has had large resolution of symptoms prior to arrival, no abdominal pain, no ongoing chest pain. He presents here for continued evaluation. Admitted for further work up . [facility] Disclaimer: The information contained in this section may have been updated after the patient was seen, as this information can be updated by other users. Medical History (Updated 06/20/23 @ 13:11 by Sotero Quintero MD) Afib Atrial flutter Carotid stenosis Cataract CKD (chronic kidney disease) Hyperlipemia Hypertension Myocardial infarct TIA (transient ischemic attack) Surgical History (Updated 06/19/23 @ 23:38 by Estela Mitchell RN) H/O Spinal surgery History of prostate surgery History of tonsillectomy and adenoidectomy Family History (Updated 06/19/23 @ 23:38 by Estela Mitchell RN) Heart attack Social History Smoking Status: Current every day smoker alcohol intake: never current occupational status: retired Travel in the last 8 weeks: None household members: children housing: house Review of Systems Review of Systems Review of systems:: pertinent systems reviewed and negative unless documented below Meds Home Medications and Allergies Home Medications Medication Instructions Recorded Confirmed Type atorvastatin 80 mg tablet 80 mg PO DAILY Cholesterol 06/21/17 06/20/23 History sertraline 100 mg tablet 150 mg PO DAILY MOOD 09/10/20 06/20/23 History apixaban 5 mg tablet 5 mg PO BID Blood Thinner 06/20/23 06/20/23 History ascorbic acid (vitamin C) 500 mg 500 mg PO DAILY Supplement 06/20/23 06/20/23 History tablet cholecalciferol (vitamin D3) 25 25 mcg PO DAILY Supplement 06/20/23 06/20/23 History mcg (1,000 unit) tablet diltiazem HCl 120 mg capsule,24 120 mg PO DAILY High Blood Pressure 06/20/23 06/20/23 History hr,extended release (Tiazac) ferrous sulfate 324 mg (65 mg 324 mg PO DAILY Supplement 06/20/23 06/20/23 History iron) tablet,delayed release lisinopril 40 mg tablet 20 mg PO DAILY High Blood Pressure 06/20/23 06/20/23 History pantoprazole 40 mg tablet,delayed 40 mg PO DAILY Acid Reflux 06/20/23 06/20/23 History release ranolazine 500 mg tablet,extended 500 mg PO BID Chest Pain 06/20/23 06/20/23 History release,12 hr urea 20 % topical cream 1 applic topical BIDP PRN Dry Skin 06/20/23 06/20/23 History (Ureacin-20) New Prescriptions to Start Prescriptions: Allergies Allergy/AdvReac Type Severity Reaction Status Date / Time No Known Allergies Allergy Verified 07/08/22 19:11 Exam Data for Last 24 hours Vital signs and Labs for Last 24 Hours: Temp Pulse Resp BP Pulse Ox O2 Del Method 98.0 F 88 19 127/65 96 Room Air 06/19/23 18:00 06/19/23 20:30 06/19/23 20:30 06/19/23 20:30 06/19/23 20:30 06/19/23 19:00 Laboratory Results - last 24 hr 06/19/23 18:05: WBC 12.8 H, RBC 3.92 L, Hgb 12.2 L, Hct 37.3 L, MCV 95.1 H, MCH 31.1, MCHC 32.7, RDW 22.1 H, Plt Count 211, MPV 8.8, Neut % (Auto) 85.1 H, Lymph % (Auto) 7.4 L, [place] % (Auto) 6.1, Eos % (Auto) 1.1, Baso % (Auto) 0.3, Neut # (Auto) 10.9 H, Lymph # (Auto) 0.9, [place] # (Auto) 0.8, Eos # (Auto) 0.1, Baso # (Auto) 0.0, Total Counted 100, Neutrophils % (Manual) 87 H, Lymphocytes % (Manual) 10, Monocytes % (Manual) 2, Eosinophils % (Manual) 1, Platelet Estimate Normal, RBC Morphology Normal, Sodium 139, Potassium 4.4, Chloride 105, Carbon Dioxide 22, Anion Gap 16.4 H, BUN 34 H, Creatinine 1.60 H, Estimated Creat Clear 53, Estimated GFR 42 L, Est GFR ( Amer) 51 L, Glucose 116 H, Calcium 8.9, Magnesium 1.8, Total Bilirubin 3.6 H, AST 39, ALT 33, Alkaline Phosphatase 77, Troponin I < 0.01, Total Protein 7.7, Albumin 4.7, Globulin 3.0, Albumin/Globulin Ratio 1.6, Lipase 330 H, TSH 4.09, Thyroxine (T4) 7.5 06/19/23 20:50: Troponin I 0.11 H I & O for Last 24 hours: Intake & Output 06/16/23 06/17/23 06/18/23 06/19/23 23:59 23:59 23:59 23:59 Weight 96.162 kg Constitutional Constitutional: mild distress and cooperative *Routine HEENT Exam Head: Present normocephalic and atraumatic Eye: Present EOMI, PERRL and normal accommodation ENT: Present mucous membranes moist *Routine Neck Exam Neck: Present supple, full ROM and trachea midline *Routine Respiratory Exam Respiratory: Present CTA bilaterally, normal respiratory effort and symmetric chest movement *Routine Cardiovascular Exam Cardiovascular: Present RRR, Normal S1 and Normal S2 *Routine Abdominal Exam Abdominal: Present soft and normoactive bowel sounds; Absent tenderness or organomegaly *Routine Rectal Exam Rectal:: deferred *Routine Genitalia Exam Genitalia:: deferred *Routine Extremities Exam Extremities: Present full ROM and pulses intact; Absent cyanosis, clubbing or edema *Routine Skin Exam Skin: Present intact, dry, warm and ecchymosis *Routine Neurological Exam Neurological: Present alert, oriented X3, normal reflexes, moving all extremities and normal speech Routine Psychiatric Exam Psychiatric: Present normal thought process, cooperative and good judgment H&P: Result Imaging and Cardiology EKG: Status: image reviewed by me and Preliminary report Chest x-ray: Status: image reviewed by me, Preliminary report and final report Assessment and Plan *Assessment and plan (1) Chest pain: Status: Acute Qualifiers: Chest pain type: unspecified Qualified Code(s): R07.9 - Chest pain, unspecified Category: Medical Code(s): R07.9 - Chest pain, unspecified (2) Non-ST elevation [place] (NSTEMI): Status: Acute Category: Medical Code(s): I21.4 - Non-ST elevation (NSTEMI) myocardial infarction (3) SVT (supraventricular tachycardia): Status: Acute Category: Medical Code(s): I47.10 - Supraventricular tachycardia, unspecified (4) Elevated lipase: Status: Acute Category: Medical Code(s): R74.8 - Abnormal levels of other serum enzymes (5) HLD (hyperlipidemia): Status: Chronic Qualifiers: Hyperlipidemia type: unspecified Qualified Code(s): E78.5 - Hyperlipidemia, unspecified Category: Medical Code(s): E78.5 - Hyperlipidemia, unspecified (6) HTN (hypertension): Status: Acute Qualifiers: Hypertension type: unspecified Qualified Code(s): I10 - Essential (primary) hypertension Category: Medical Code(s): I10 - Essential (primary) hypertension (7) COPD (chronic obstructive pulmonary disease): Status: Chronic Qualifiers: COPD type: unspecified COPD Qualified Code(s): J44.9 - Chronic obstructive pulmonary disease, unspecified Category: Medical Code(s): J44.9 - Chronic obstructive pulmonary disease, unspecified Plan 77-year-old male with PMHx of coronary artery disease status post heart catheterization with medical management, no stents, hypertension, hyperlipidemia, previous SVT status post cardioversion who was brought in by EMS to the ED for evaluation of rapid heart rate and chest pain. Upon arrival patient presented asymptomatic. CXR and EKG was done. Patient on normal SR. Per EMS was on SVT while on transportation resolved after spontaneous vomit. Labs are remarkable for initially slightly elevated troponin. His creatinine is around his baseline, white count are slightly elevated. Lipase is also elevated. Findings were discussed with the ER provider for admission. Plan of -Chest pain and SVT. resolved. Admit patient for continuous cardiac telemetry. Cardiology consult. To rule out non-STEMI or acute coronary syndrome Monitor for chest pain and heart rate. Nitroglycerin sublingual as needed. Resume ranolazine Vital signs per unit protocol Cardiac diet. Keep n.p.o. after midnight prior to any cardiac intervention EKG reviewed Cardizem one-time dose given Chest x-ray reviewed trend Serial troponin. -Elevated lipase: Patient currently denies any abdominal pain nausea or vomit Condition to rule out as pancreatitis Continue monitor -history of hyperlipidemia hypertension previous coronary artery disease without stent: Of note patient is not on anticoagulation. Aspirin 324 mg was given on arrival Will continue with daily dose of 81 mg Resume atorvastatin on isosorbide 60mg and metoprolol -COPD stable. Not on exacerbation Monitor for O2 saturation. Currently normal room air O2 as needed SCD for DVT prophylaxis. On Protonix Full Rounded on patient after nurse practitioner. Personally examined and interviewed patient. Agree with exam findings and care plan as documented.
[2023-06-20] VITALS (9 sets, daily range): BP systolic 85–123; BP diastolic 42–83; PULSE 60–76; RESP 16–20; TEMP 36.4–37.1; O2SAT 92–97; BMI 28.8
[2023-06-20 00:56] LABS: Troponin I 0.25 ng/ml (0.00-0.034)
[2023-06-20] MEDS: 0.9 % SODIUM CHLORIDE 1000ML 1,000 ML 50 ML IV (01:06)
--- NOTE | 2023-06-20 07:50 | P.PN_ITS ---
Subjective *Date: 06/20/23 *Time: 13:08 Interval history: Patient no chest pain today. No further events of SVT overnight. Tolerating p.o. intake. Troponin is elevated from 0.11-0.25. Heart rate controlled at 67. Blood pressure soft. Patient informed this morning that [facility] and if something needs to be done he would like to be transferred. Medical Exam Vital signs and Labs for Last 24 Hours: Vital Signs Temp Pulse Pulse Resp BP BP Pulse Ox 06/20/23 07:00 06/20/23 05:00 06/20/23 04:00 98.8 F 67 20 85/44 L 96 06/19/23 18:56 80 06/20/23 03:00 06/19/23 23:00 06/20/23 01:00 06/20/23 00:00 98.7 F 06/19/23 23:42 06/19/23 23:39 82 18 122/61 99 06/19/23 22:41 98.1 F 89 18 128/60 06/19/23 22:36 98.1 F 89 20 128/60 98 06/19/23 20:30 88 19 127/65 96 06/19/23 20:00 88 12 115/58 L 94 L 06/19/23 19:30 91 H 20 123/66 95 06/19/23 19:00 91 H 18 126/64 97 06/19/23 18:00 98.0 F 96 H 16 110/63 97 O2 Del Method 06/20/23 07:00 Room Air 06/20/23 05:00 Room Air 06/20/23 04:00 Room Air 06/19/23 18:56 06/20/23 03:00 Room Air 06/19/23 23:00 Room Air 06/20/23 01:00 Room Air 06/20/23 00:00 06/19/23 23:42 Room Air 06/19/23 23:39 Room Air 06/19/23 22:41 Room Air 06/19/23 22:36 Room Air 06/19/23 20:30 06/19/23 20:00 06/19/23 19:30 06/19/23 19:00 Room Air 06/19/23 18:00 Room Air Intake and Output 06/19/23 06/19/23 06/20/23 15:59 23:59 07:59 Output Total 0 / 0 Balance 0 / 0 Output: Output, Urine Amount 0 / 0 Other: Number of Unmeasured Voids 1 Weight 96.162 kg 96.757 kg Patient Weight 06/20/23 23:59 Weight 96.757 kg Laboratory Results - last 24 hr 06/19/23 18:05: WBC 12.8 H, RBC 3.92 L, Hgb 12.2 L, Hct 37.3 L, MCV 95.1 H, MCH 31.1, MCHC 32.7, RDW 22.1 H, Plt Count 211, MPV 8.8, Neut % (Auto) 85.1 H, Lymph % (Auto) 7.4 L, [place] % (Auto) 6.1, Eos % (Auto) 1.1, Baso % (Auto) 0.3, Neut # (Auto) 10.9 H, Lymph # (Auto) 0.9, [place] # (Auto) 0.8, Eos # (Auto) 0.1, Baso # (Auto) 0.0, Total Counted 100, Neutrophils % (Manual) 87 H, Lymphocytes % (Manual) 10, Monocytes % (Manual) 2, Eosinophils % (Manual) 1, Platelet Estimate Normal, RBC Morphology Normal, Sodium 139, Potassium 4.4, Chloride 105, Carbon Dioxide 22, Anion Gap 16.4 H, BUN 34 H, Creatinine 1.60 H, Estimated Creat Clear 53, Estimated GFR 42 L, Est GFR ( Amer) 51 L, Glucose 116 H, Calcium 8.9, Magnesium 1.8, Total Bilirubin 3.6 H, AST 39, ALT 33, Alkaline Phosphatase 77, Troponin I < 0.01, Total Protein 7.7, Albumin 4.7, Globulin 3.0, Albumin/Globulin Ratio 1.6, Lipase 330 H, TSH 4.09, Thyroxine (T4) 7.5 06/19/23 20:50: Troponin I 0.11 H 06/20/23 00:23: Troponin I 0.25 H I & O for Labs for Last 24 Hours: Intake & Output 06/17/23 06/18/23 06/19/23 06/20/23 23:59 23:59 23:59 23:59 Output Total 0 / 0 Balance 0 / 0 Weight 96.162 kg 96.757 kg Constitutional: Present no acute distress, average body habitus, chronically ill appearing and cooperative Head: Present atraumatic and normocephalic ENT: Present normal exam Respiratory: Present normal respiratory effort; Absent rhonchi, wheezes or crackles Cardiac: Present Reg Rate and Rhythm GI: Present soft and normal bowel sounds; Absent distention or tenderness Extremities: Present normal inspection and full ROM; Absent edema Skin: Present intact; Absent erythema Neuro: Present Grossly Intact, alert, awake, oriented x 3 and moves all extremities Assessment and Plan *Assessment and plan (1) Chest pain: Status: Acute Qualifiers: Chest pain type: unspecified Qualified Code(s): R07.9 - Chest pain, unspecified Category: Medical Code(s): R07.9 - Chest pain, unspecified (2) Non-ST elevation [place] (NSTEMI): Status: Acute Category: Medical Code(s): I21.4 - Non-ST elevation (NSTEMI) myocardial infarction (3) SVT (supraventricular tachycardia): Status: Acute Category: Medical Code(s): I47.10 - Supraventricular tachycardia, unspecified (4) CKD (chronic kidney disease): Status: Chronic Category: Medical Code(s): N18.9 - Chronic kidney disease, unspecified (5) Elevated lipase: Status: Acute Category: Medical Code(s): R74.8 - Abnormal levels of other serum enzymes (6) HLD (hyperlipidemia): Status: Chronic Qualifiers: Hyperlipidemia type: unspecified Qualified Code(s): E78.5 - Hyperlipidemia, unspecified Category: Medical Code(s): E78.5 - Hyperlipidemia, unspecified (7) HTN (hypertension): Status: Acute Qualifiers: Hypertension type: unspecified Qualified Code(s): I10 - Essential (primary) hypertension Category: Medical Code(s): I10 - Essential (primary) hypertension (8) COPD (chronic obstructive pulmonary disease): Status: Chronic Qualifiers: COPD type: unspecified COPD Qualified Code(s): J44.9 - Chronic o bstructive pulmonary disease, unspecified Category: Medical Code(s): J44.9 - Chronic obstructive pulmonary disease, unspecified Plan 77-year-old male with PMHx of coronary artery disease status post heart catheterization with medical management, no stents, hypertension, hyperli pidemia, previous SVT status post cardioversion who was brought in by EMS to the ED for evaluation of rapid heart rate and chest pain. Upon arrival patient presented asymptomatic. CXR and EKG was done. Patient on normal SR. Per EMS was on SVT while on transportation resolved after spontaneous vomit. Labs are remarkable for initially slightly elevated troponin. His creatinine is around his baseline, white count are slightly elevated. Lipase is also elevated. Findings were discussed with the ER provider for admission. Patient feeling better this morning. Tolerating p.o. intake. No chest pain or further events overnight. Continues to require inpatient management for cardiology eval in the morning. Of note, stated [facility] is [facility]. Will attempt transfer if they have availability. Problems addressed as follows: -Chest pain and SVT. resolved. -Hypertension -Hyperlipidemia Cardiology consult. To rule out non-STEMI or acute coronary syndrome. Troponin elevated to 0.25. Repeat troponin this afternoon and in the morning. Symptom- free at this time. Continue to monitor on telemetry. Blood pressure well-controlled, continue home Eliquis. Will hold diltiazem and ranolazine this morning given hypotension. Holding lisinopril. Continue Lipitor 80 mg Cardiac diet -Elevated lipase: Patient currently denies any abdominal pain nausea or vomiting. Suspect secondary to emesis prior to admission. -COPD stable. Not on exacerbation. O2 sats greater 90%, currently on room air. -Mood sorter: Continue Zoloft 150 mg daily Eliquis twice daily Pantoprazole Cardiac diet Full code
[2023-06-20 08:40] LABS: Basophils % 0.2 % (0.1-2.0); Eosinophils # 0.1 K/mm3 (0.0-0.4); Eosinophils % 1.3 % (0.1-12.0); Hematocrit 30.6 % (42.0-52.0); Lymphocytes # 0.7 K/mm3 (0.7-4.5); Lymphocytes % 10.9 % (10-50); Mean Corpuscular HGB Conc 33.6 g/dL (31.8-35.4); Mean Corpuscular Hemoglobin 32.3 pg (27.0-31.2); Mean Corpuscular Volume 96.2 fl (80-94); Mean Platelet Volume 8.6 fl (7.4-10.4); Monocytes # 0.7 K/mm3 (0.1-1.0); Monocytes % 11.8 % (1.7-9.3); Neutrophils # 4.5 K/mm3 (1.8-7.8); Neutrophils % 75.8 % (37.0-80.0); Platelet Count 195 K/mm3 (142-424); Red Blood Count 3.18 M/mm3 (4.60-6.20); Red Cell Distribution Width 22.8 % (11.5-17.5); White Blood Count 5.9 K/mm3 (4.8-10.8)
[2023-06-20 08:48] LABS: Hemoglobin 10.3 g/dL (14.1-18.0)
[2023-06-20 08:51] LABS: Alanine Aminotransferase 23 U/L (12-78); Albumin Level 3.8 g/dl (3.5-5.0); Albumin/Globulin Ratio 1.6 (1.1-1.8); Alkaline Phosphatase 45 U/L (38-126); Anion Gap 12.2 mEq/L (5-15); Aspartate Amino Transferase 31 U/L (17-59); Bilirubin,Total 3.5 mg/dl (0.2-1.3); Blood Urea Nitrogen 34 mg/dl (9-20); Calcium 8.1 mg/dl (8.4-10.2); Carbon Dioxide 24 mmol/L (22.0-30.0); Chloride 106 mmol/L (98-107); Creatinine Clearance Estimated 57 mL/min (50-200); Estimated Glomerular Filt Rate 46 ml/min (>60); GFR (African American) 55 ML/MIN (>60); Globulin 2.4 g/dL (1.3-3.2); Glucose 87 mg/dl (74-100); Magnesium 1.9 mg/dl (1.6-2.3); Potassium 4.2 mmoL/L (3.5-5.1); Sodium 138 mmol/L (136-145); Total Protein,Serum 6.2 g/dl (6.3-8.2)
[2023-06-20] MEDS: METOPROLOL TARTRATE 50MG TABLET 50 MG PO (09:26)
[2023-06-20] MEDS: ASPIRIN 81MG CHEWABLE TABLET 81 MG PO (09:26)
[2023-06-20] MEDS: PANTOPRAZOLE 40MG TABLET 40 MG PO (09:26)
[2023-06-20] MEDS: SERTRALINE 100MG TABLET 150 MG PO (09:27)
[2023-06-20] MEDS: ATORVASTATIN 40MG TABLET 80 MG PO (09:27)
--- NOTE | 2023-06-20 10:41 | PC.NURSE ---
Spoke with [place] transfer center regarding patient transfer. They stated they would take all information but were unable to transfer today due to not taking inpatient to inpatient transfers on weekends. Instructed to call back in the morning to check for bed availability and initiate transfer.
--- NOTE | 2023-06-20 11:58 | P.CONPHA_ITS ---
Pharmacy Intervention Comments: MEDICATION RECONCILIATION COMPLETE VIA PHONE CALL TO [facility].
[2023-06-20] MEDS: MAGNESIUM OXIDE 400MG TABLET 400 MG PO (12:09)
[2023-06-20 16:33] LABS: Troponin I 0.09 ng/ml (0.00-0.034)
[2023-06-20] MEDS: PT OWN MED *ELIQUIS 5 MG TAB 1 EACH PO (21:56)
[2023-06-21] VITALS: PULSE 80
[2023-06-21 04:00] VITALS: BP 113/73; PULSE 76; RESP 22; TEMP 36.4; O2SAT 91; BMI 29.4
[2023-06-21 07:14] LABS: Basophils % 0.3 % (0.1-2.0); Eosinophils # 0.1 K/mm3 (0.0-0.4); Eosinophils % 2.1 % (0.1-12.0); Hematocrit 30.1 % (42.0-52.0); Hemoglobin 10.2 g/dL (14.1-18.0); Lymphocytes # 1.2 K/mm3 (0.7-4.5); Lymphocytes % 18.7 % (10-50); Mean Corpuscular HGB Conc 33.9 g/dL (31.8-35.4); Mean Corpuscular Volume 94.5 fl (80-94); Mean Platelet Volume 8.9 fl (7.4-10.4); Monocytes # 0.9 K/mm3 (0.1-1.0); Monocytes % 13.1 % (1.7-9.3); Neutrophils # 4.4 K/mm3 (1.8-7.8); Neutrophils % 65.8 % (37.0-80.0); Platelet Count 196 K/mm3 (142-424); Red Blood Count 3.19 M/mm3 (4.60-6.20); Red Cell Distribution Width 22.3 % (11.5-17.5); White Blood Count 6.6 K/mm3 (4.8-10.8)
[2023-06-21 08:00] VITALS: BP 131/64; PULSE 70; PULSE 77; RESP 17; TEMP 36.5; O2SAT 94
[2023-06-21 08:33] LABS: Chloride 107 mmol/L (98-107); Sodium 137 mmol/L (136-145)
[2023-06-21 08:34] LABS: Potassium 4.1 mmoL/L (3.5-5.1)
[2023-06-21 08:36] LABS: Alanine Aminotransferase 26 U/L (12-78); Albumin/Globulin Ratio 1.5 (1.1-1.8); Alkaline Phosphatase 56 U/L (38-126); Anion Gap 11.1 mEq/L (5-15); Aspartate Amino Transferase 38 U/L (17-59); Bilirubin,Total 3.1 mg/dl (0.2-1.3); Blood Urea Nitrogen 34 mg/dl (9-20); Calcium 8.3 mg/dl (8.4-10.2); Carbon Dioxide 23 mmol/L (22.0-30.0); Creatinine Clearance Estimated 55 mL/min (50-200); Estimated Glomerular Filt Rate 42 ml/min (>60); GFR (African American) 51 ML/MIN (>60); Globulin 2.6 g/dL (1.3-3.2); Glucose 91 mg/dl (74-100); Total Protein,Serum 6.6 g/dl (6.3-8.2)
[2023-06-21 08:41] LABS: Troponin I 0.05 ng/ml (0.00-0.034)
[2023-06-21] MEDS: DILTIAZEM 120 MG 1 EACH PO (09:15)
[2023-06-21] MEDS: ASPIRIN 81MG CHEWABLE TABLET 81 MG PO (09:15)
[2023-06-21] MEDS: MAGNESIUM OXIDE 400MG TABLET 400 MG PO (09:15)
[2023-06-21] MEDS: ATORVASTATIN 80 MG 1 EACH PO (09:15)
[2023-06-21] MEDS: PT OWN MED *PANTOPRAZOLE DR 40 MG TAB 1 EACH PO (09:16)
[2023-06-21] MEDS: PT OWN MED *ELIQUIS 5 MG TAB 1 EACH PO (09:16)
[2023-06-21] MEDS: SERTRALINE 100 MG 1.5 EACH PO (09:16)
--- NOTE | 2023-06-21 09:31 | CA_ITS ---
APPROVED REPORT EXAM: Comprehensive 2D, Doppler, and color-flow Echocardiogram Orthodontic Band Maker: Nickie Walden RT(R) Ht: 6 ft 0 in Wt: 213lbs BSA: 2.19 BP: 127/65 mmHg Indications: AFIB, hx of cardioversion 2 years ago, COPD, smoker, HTN, hyperlipidemia, CAD, hx [place], hx TIA, KATY. 2D Dimensions LVEF (Carter's) 51.30 % M: 52 - 72 LV Volume 106.80 mL M: 62 - 150 LV Volume Index 48.8 mL/m2 M: 34 - 74 LA Volume 40.60 mL LA Volume Index 18.54 mL/m2 (M/F) 16-34 EF AP4 52.70 % EF AP2 53.7 % EF BP 51.3 % GL Strain -16.0 % M-Mode Dimensions RVDd 2.84 cm (0.9-2.6) LA Diam 3.83 cm (1.9-4.0) LVDd 5.01 cm (3.5-5.7) LVDs 3.93 cm (3.5-5.7) IVSd 0.84 cm (0.6-1.1) PWd 0.92 cm (0.6-1.1) EF (Teich) 43.50% FS 21.60% EDV (Teich) 118.80 mL TAPSE 1.13 (<1.7) ESV (Teich) 67.10 mL LV Diastology E Decel Time 150 (160-240 msec) E/A Ratio 1.22 Mitral Valve MV A Velocity 63.0 (40-130 cm/s) E/A Ratio 1.22 Tricuspid Valve TR P. Velocity 271.00 cm/s RAP Estimate 10.00 mmHg RVSP 39.40 mmHg Left Ventricle The left ventricle is normal size. The left ventricular systolic function is normal. The left ventricular ejection fraction is within the normal range. There is increased LV wall thickness. Proximal septal thickening is noted. There is normal LV segmental wall motion. The left ventricular diastolic function is normal. LVEF is 55%. Right Ventricle The right ventricle is moderately dilated. There is mild reduction in RV function. Atria The left atrium size is normal. The right atrium is mildly dilated. There is no Doppler evidence of interatrial shunt. Aortic Valve The aortic valve is mildly thickened. There is no aortic valvular stenosis. Trace aortic regurgitation. Mitral Valve The mitral valve leaflets are mildly thickened. No evidence of mitral valve stenosis. Trace mitral regurgitation. Tricuspid Valve The tricuspid valve leaflets are mildly thickened. Moderate tricuspid regurgitation. The TR jet is eccentric and posteriorly directed. RVSP is 30-35 mmHg. Pulmonic Valve The pulmonary valve is normal in structure. Trace pulmonic regurgitation. Great Vessels The aortic root is normal in size. The ascending aorta is normal in size. IVC is normal in size and collapses >50% with inspiration. Pericardium There is no pericardial effusion. Other Information Study Quality: Fair Conclusion Normal LV systolic function. Moderate RV dilation with mild reduction in RV function. Mild RA dilation. Moderate TR. The TR jet is eccentric and patient will be directed. RVSP is 30-35 mmHg. Electronically signed by : Saray Rivers MD 06/22/2023 12:11:55
[2023-06-21 12:00] VITALS: PULSE 80
--- NOTE | 2023-06-21 12:12 | EXP.DC.SUM ---
General Admission date:: 06/19/23 Discharge date: 06/21/23 HPI HPI HPI: This is a 77-year-old male with PMHx of coronary artery disease status post heart catheterization with medical management, no stents, hypertension, hyperlipidemia, previous SVT status post cardioversion who was brought in by EMS to the ED for evaluation of rapid heart rate and chest pain. History is obtained from patient at bedside, as well as ED and EMS report. Patient earlier today was at home when he felt chest pain, stomach pain which was relieved by vomiting. Subsequently this afternoon patient had another episode of chest pain and stomach pain. Upon commissioning engineer arrival patient was in SVT and had an episode of vomiting with spontaneous conversion. He has had large resolution of symptoms prior to arrival, no abdominal pain, no ongoing chest pain. He presents here for continued evaluation. Admitted for further work up . Hospital Course Hospital Course Hospital Course: 77-year-old male with PMHx of coronary artery disease status post heart catheterization with medical management, no stents, hypertension, hyperlipidemia, previous SVT status post cardioversion who was brought in by EMS to the ED for evaluation of rapid heart rate and chest pain. Upon arrival patient presented asymptomatic. CXR and EKG was done. Patient in normal SR. Per EMS was in SVT while in transportation, resolved after spontaneous vomiting. Labs are remarkable for initially slightly elevated troponin. His creatinine is around his baseline, white count are slightly elevated. Lipase is also elevated. Findings were discussed with the ER provider for admission. Patient felt better by morning after admission. No further events during admission. No further chest pain. Of note, stated he is [facility]. Discussed transfer with the [facility] and patient. Discharged home with his elected course of action with close follow-up. Supporting patient's autonomy with his decision. [facility] to facilitate close outpatient follow-up. Problems addressed as follows: -Chest pain and SVT. resolved. -Hypertension -Hyperlipidemia Cardiology consult. To rule out non-STEMI or acute coronary syndrome. Troponin peaked at 0.25, down to 0.05 on morning of transfer. Symptom-free since admission. Monitored on telemetry. No further events. Cardiology evaluated patient, echo was obtained, on preliminary read, EF appears preserved. Per cardiology recommendations, as it has been greater than 5 years since left heart cath, extensive cardiac history, had tachyarrhythmia with elevation in troponin, recommend left heart cath. As the patient is a [facility] patient, recommend transfer for further evaluation and intervention. Blood pressure well-controlled during admission. Continuing home Eliquis for A-fib. Resumed diltiazem, ranolazine, lisinopril. Currently anticoagulated with Eliquis. Continue Lipitor 80 mg. -Elevated lipase: Asymptomatic. No abdominal pain. Tolerating p.o. intake. Suspect secondary to emesis. Lipase was approximately 300 on admission -COPD stable. Not in exacerbation. O2 sats greater 90%, currently on room air. -Mood disorder: Continue Zoloft 150 mg daily Patient stable since admission. Discussed case with the [place], and looking back at his last heart cath in 2017, the blockages he has are nonactionable. There are no lesions amenable to stenting. Medication management was the recommendation. Discussed the patient likely would not be cathed inpatient if transferred to the [place]. Patient given the choice for transfer versus discharge home with close follow-up. Patient elected to go home. [place] transfer center contacted and is facilitating follow-up with cardiology as an outpatient [facility]. Spent 30 minutes in discharge counseling, documentation, chart review, and direct care with patient. Exam Data for Last 24 hours Vital signs and Labs for Last 24 Hours: Temp Pulse Resp BP Pulse Ox O2 Del Method 97.7 F 77 17 131/64 94 L Room Air 06/21/23 08:00 06/21/23 08:00 06/21/23 08:00 06/21/23 08:00 06/21/23 08:00 06/21/23 11:00 Laboratory Results - last 24 hr 06/20/23 15:44: Troponin I 0.09 H 06/21/23 06:06: WBC 6.6, RBC 3.19 L, Hgb 10.2 L, Hct 30.1 L, MCV 94.5 H, MCH 32.0 H, MCHC 33.9, RDW 22.3 H, Plt Count 196, MPV 8.9, Neut % (Auto) 65.8, Lymph % (Auto) 18.7, [place] % (Auto) 13.1 H, Eos % (Auto) 2.1, Baso % (Auto) 0.3, Neut # (Auto) 4.4, Lymph # (Auto) 1.2, [place] # (Auto) 0.9, Eos # (Auto) 0.1, Baso # (Auto) 0.0, Sodium 137, Potassium 4.1, Chloride 107, Carbon Dioxide 23, Anion Gap 11.1, BUN 34 H, Creatinine 1.60 H, Estimated Creat Clear 55, Estimated GFR 42 L, Est GFR ( Amer) 51 L, Glucose 91, Calcium 8.3 L, Magnesium 2.0, Total Bilirubin 3.1 H, AST 38, ALT 26, Alkaline Phosphatase 56, Troponin I 0.05 H, Total Protein 6.6, Albumin 4.0, Globulin 2.6, Albumin/Globulin Ratio 1.5 I & O for Last 24 hours: Intake & Output 06/18/23 06/19/23 06/20/23 06/21/23 23:59 23:59 23:59 23:59 Intake Total 780 / 780 360 / 360 Output Total 0 / 0 0 / 0 0 / 0 Balance 0 / 0 780 / 780 360 / 360 Weight 96.162 kg 96.757 kg 98.656 kg Constitutional Constitutional: no acute distress, average body habitus and cooperative *Routine HEENT Exam Head: Present normocephalic Eye: Present EOMI and PERRL ENT: Present mucous membranes moist *Routine Neck Exam Neck: Present supple; Absent lymphadenopathy *Routine Respiratory Exam Respiratory: Present CTA bilaterally *Routine Cardiovascular Exam Cardiovascular: Present RRR; Absent murmur *Routine Abdominal Exam Abdominal: Present soft and normoactive bowel sounds; Absent tenderness *Routine Rectal Exam Patient deferred: visual exam *Routine Exam Patient deferred: penile exam *Routine Extremities Exam Extremities: Absent cyanosis, clubbing or edema *Routine Skin Exam Skin: Present warm; Absent rash *Routine Neurological Exam Neurological: Present alert, oriented X3 and moving all extremities; Absent altered mental status Results Data Completed and Pending Labs on day of discharge: Labs from last 24 hours 06/21/23 06/20/23 06:06 15:44 WBC 6.6 RBC 3.19 L Hgb 10.2 L Hct 30.1 L MCV 94.5 H MCH 32.0 H MCHC 33.9 RDW 22.3 H Plt Count 196 MPV 8.9 Neut % (Auto) 65.8 Lymph % (Auto) 18.7 [place] % (Auto) 13.1 H Eos % (Auto) 2.1 Baso % (Auto) 0.3 Neut # (Auto) 4.4 Lymph # (Auto) 1.2 [place] # (Auto) 0.9 Eos # (Auto) 0.1 Baso # (Auto) 0.0 Sodium 137 Potassium 4.1 Chloride 107 Carbon Dioxide 23 Anion Gap 11.1 BUN 34 H Creatinine 1.60 H Estimated Creat Clear 55 Estimated GFR 42 L Est GFR ( Amer) 51 L Glucose 91 Calcium 8.3 L Magnesium 2.0 Total Bilirubin 3.1 H AST 38 ALT 26 Alkaline Phosphatase 56 Troponin I 0.05 H 0.09 H Total Protein 6.6 Albumin 4.0 Globulin 2.6 Albumin/Globulin Ratio 1.5 DS: Diagnosis Discharge Diagnosis (1) Chest pain: Status: Acute Code(s): R07.9 - Chest pain, unspecified Qualifiers: Chest pain type: unspecified Qualified Code(s): R07.9 - Chest pain, unspecified (2) Non-ST elevation [place] (NSTEMI): Status: Acute Code(s): I21.4 - Non-ST elevation (NSTEMI) myocardial infarction (3) SVT (supraventricular tachycardia): Status: Acute Code(s): I47.10 - Supraventricular tachycardia, unspecified (4) Elevated lipase: Status: Acute Code(s): R74.8 - Abnormal levels of other serum enzymes (5) HLD (hyperlipidemia): Status: Chronic Code(s): E78.5 - Hyperlipidemia, unspecified Qualifiers: Hyperlipidemia type: unspecified Qualified Code(s): E78.5 - Hyperlipidemia, unspecified (6) HTN (hypertension): Status: Acute Code(s): I10 - Essential (primary) hypertension Qualifiers: Hypertension type: unspecified Qualified Code(s): I10 - Essential (primary) hypertension (7) COPD (chronic obstructive pulmonary disease): Status: Chronic Code(s): J44.9 - Chronic obstructive pulmonary disease, unspecified Qualifiers: COPD type: unspecified COPD Qualified Code(s): J44.9 - Chronic obstructive pulmonary disease, unspecified Meds Home Medications and Allergies Home Medications Medication Instructions Recorded Confirmed Type atorvastatin 80 mg tablet 80 mg PO DAILY Cholesterol 06/21/17 06/20/23 History sertraline 100 mg tablet 150 mg PO DAILY MOOD 09/10/20 06/20/23 History apixaban 5 mg tablet 5 mg PO BID Blood Thinner 06/20/23 06/20/23 History ascorbic acid (vitamin C) 500 mg 500 mg PO DAILY Supplement 06/20/23 06/20/23 History tablet cholecalciferol (vitamin D3) 25 25 mcg PO DAILY Supplement 06/20/23 06/20/23 History mcg (1,000 unit) tablet diltiazem HCl 120 mg capsule,24 120 mg PO DAILY High Blood Pressure 06/20/23 06/20/23 History hr,extended release (Tiazac) ferrous sulfate 324 mg (65 mg 324 mg PO DAILY Supplement 06/20/23 06/20/23 History iron) tablet,delayed release lisinopril 40 mg tablet 20 mg PO DAILY High Blood Pressure 06/20/23 06/20/23 History pantoprazole 40 mg tablet,delayed 40 mg PO DAILY Acid Reflux 06/20/23 06/20/23 History release ranolazine 500 mg tablet,extended 500 mg PO BID Chest Pain 06/20/23 06/20/23 History release,12 hr urea 20 % topical cream 1 applic topical BIDP PRN Dry Skin 06/20/23 06/20/23 History (Ureacin-20) aspirin 81 mg chewable tablet 81 mg PO DAILY #0 tabs 06/21/23 Rx New Prescriptions to Start Prescriptions: Allergies Allergy/AdvReac Type Severity Reaction Status Date / Time No Known Allergies Allergy Verified 07/08/22 19:11 Discharge Plan Disposition Patient Disposition: Home, Self-Care Condition: Fair Follow up Plan Follow up with: Provider,Referral, MD [Primary Care Provider] - Enter time for follow up ([facility], [facility] with both cardiology and his PCP [facility].) Prescriptions/Medication Reconciliation: New aspirin 81 mg Tablet,Chewable 81 mg PO DAILY Qty: 0 0RF Continued atorvastatin 80 mg tablet 80 mg PO DAILY sertraline 100 MG tablet 150 mg PO DAILY urea [Ureacin-20] 20 % Cream 1 applic TOPICAL BIDP PRN (Reason: Dry Skin) ascorbic acid (vitamin C) 500 mg Tablet 500 mg PO DAILY diltiazem HCl [Tiazac] 120 mg Capsule,Extended Release 24 Hr 120 mg PO DAILY pantoprazole 40 mg Tablet,Delayed Release (Dr/Ec) 40 mg PO DAILY lisinopril 40 mg Tablet 20 mg PO DAILY ranolazine 500 mg Tablet Extended Release 12 Hr 500 mg PO BID cholecalciferol (vitamin D3) 25 mcg (1,000 unit) Tablet 25 mcg PO DAILY ferrous sulfate 324 mg (65 mg iron) Tablet,Delayed Release (Dr/Ec) 324 mg PO DAILY apixaban 5 mg Tablet 5 mg PO BID Discontinued amlodipine 5 MG tablet 10 mg PO DAILY Problem Reconciliation Problems Reviewed?: Yes Patient Discharge Instructions ACTIVITY: Continue current activity DIET: continue same diet Patient Instructions: DI for Heart Attack, Paroxysmal Supraventricular Tachycardia, DI for Atrial Fibrillation Providers Primary Care Provider: Provider,Referral Admit Provider: Sotero Quintero Attending Provider: Sotero Quintero
[2023-06-21 12:32] LABS: Coronavirus 19, PCR Not Detected (NotDetected); Influenza A, PCR Not Detected (NotDetected); Influenza B, PCR Not Detected (NotDetected)
--- NOTE | 2023-06-21 13:10 | P.CONCA_ITS ---
History of Present Illness History of Present Illness Consult date: 06/21/23 Requesting physician: Sotero Quintero Consult reason: chest pain Chief complaint: chest pain, palpitations History of present illness: This is a 77-year-old white male with past medical history of PAF status post cardioversion on Eliquis, previous left heart catheterization resulting in medical management greater than 5 years ago, hypertension, hyperlipidemia and former smoker presented to hospital on Wednesday with complaints of intermittent midsternal chest pain associated with palpitations and nausea/vomiting. Patient reports he awoke on Wednesday morning not feeling well with complaints of chest pressure and palpitations that resolved with vomiting. He reports he had a second episode of same symptoms later in the afternoon which prompted patient to call EMS. 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 Upon presentation to hospital patient was denying any symptoms and was in NSR. Initial troponin was elevated at 0.11. Patient was admitted for SVT, chest pain, NSTEMI and cardiology evaluation. Labs today are as follow: WBC 6.6, hemoglobin 10.2, sodium 138, potassium 4.2, creatinine 1.5 which is at baseline. Troponin trended up to 0.25. Latest troponin 0.09. Preliminary echo report shows an normal ejection fraction with wall motion abnormalities noted, official read is pending. Patient denies history of SVT, reports does have a history of paroxysmal atrial fibrillation which he underwent cardioversion at [facility] greater than 5 years ago. Patient reports at that time he also underwent a left heart catheterization which was medical management only. Patient request that if he has to undergo any further procedures he be transferred to [facility]. [facility] Disclaimer: The information contained in this section may have been updated after the patient was seen, as this information can be updated by other users. Medical History (Updated 06/21/23 @ 13:23 by Xochitl Castillo APRN) Afib Atrial flutter Carotid stenosis Cataract CKD (chronic kidney disease) Hyperlipemia Hypertension Myocardial infarct TIA (transient ischemic attack) Surgical History (Updated 06/19/23 @ 23:38 by Estela Mitchell RN) H/O Spinal surgery History of prostate surgery History of tonsillectomy and adenoidectomy Family History (Updated 06/19/23 @ 23:38 by Estela Mitchell RN) Other Heart attack Social History Smoking Status: Current every day smoker alcohol intake: never current occupational status: retired Travel in the last 8 weeks: None household members: children housing: house Review of Systems Review of Systems Review of systems:: pertinent systems reviewed and negative unless documented below *Cardiovascular Cardiovascular: Reports chest pain Comments: palpitations *Gastrointestinal Gastrointestinal: Reports vomiting Exam Data for Last 24 hours Vital signs and Labs for Last 24 Hours: Temp Pulse Resp BP Pulse Ox O2 Del Method 97.7 F 77 17 131/64 94 L Room Air 06/21/23 08:00 06/21/23 08:00 06/21/23 08:00 06/21/23 08:00 06/21/23 08:00 06/21/23 11:00 Laboratory Results - last 24 hr 06/20/23 15:44: Troponin I 0.09 H 06/21/23 06:06: WBC 6.6, RBC 3.19 L, Hgb 10.2 L, Hct 30.1 L, MCV 94.5 H, MCH 32.0 H, MCHC 33.9, RDW 22.3 H, Plt Count 196, MPV 8.9, Neut % (Auto) 65.8, Lymph % (Auto) 18.7, [place] % (Auto) 13.1 H, Eos % (Auto) 2.1, Baso % (Auto) 0.3, Neut # (Auto) 4.4, Lymph # (Auto) 1.2, [place] # (Auto) 0.9, Eos # (Auto) 0.1, Baso # (Auto) 0.0, Sodium 137, Potassium 4.1, Chloride 107, Carbon Dioxide 23, Anion Gap 11.1, BUN 34 H, Creatinine 1.60 H, Estimated Creat Clear 55, Estimated GFR 42 L, Est GFR ( Amer) 51 L, Glucose 91, Calcium 8.3 L, Magnesium 2.0, Total Bilirubin 3.1 H, AST 38, ALT 26, Alkaline Phosphatase 56, Troponin I 0.05 H, Total Protein 6.6, Albumin 4.0, Globulin 2.6, Albumin/Globulin Ratio 1.5 I & O for Last 24 hours: Intake & Output 02/09/24 02/10/24 02/11/24 02/12/24 23:59 23:59 23:59 23:59 Intake Total 780 / 780 360 / 360 Output Total 0 / 0 0 / 0 0 / 0 Balance 0 / 0 780 / 780 360 / 360 Weight 212 lb 213 lb 5 oz 217 lb 8 oz Constitutional Constitutional: no acute distress *Routine Respiratory Exam Respiratory: Present CTA bilaterally and symmetric chest movement *Routine Cardiovascular Exam Cardiovascular: Present RRR, Normal S1 and Normal S2 *Routine Abdominal Exam Abdominal: Present soft and normoactive bowel sounds; Absent tenderness *Routine Extremities Exam Extremities: Present full ROM and normal capillary refill; Absent edema *Routine Skin Exam Skin: Present intact, dry and warm Detailed Neck Exam: Thyroids Thyroid: Absent bruit Meds Home Medications and Allergies Home Medications Medication Instructions Recorded Confirmed Type atorvastatin 80 mg tablet 80 mg PO DAILY Cholesterol 06/21/17 06/20/23 History sertraline 100 mg tablet 150 mg PO DAILY MOOD 09/10/20 06/20/23 History apixaban 5 mg tablet 5 mg PO BID Blood Thinner 06/20/23 06/20/23 History ascorbic acid (vitamin C) 500 mg 500 mg PO DAILY Supplement 06/20/23 06/20/23 History tablet cholecalciferol (vitamin D3) 25 25 mcg PO DAILY Supplement 06/20/23 06/20/23 History mcg (1,000 unit) tablet diltiazem HCl 120 mg capsule,24 120 mg PO DAILY High Blood Pressure 06/20/23 06/20/23 History hr,extended release (Tiazac) ferrous sulfate 324 mg (65 mg 324 mg PO DAILY Supplement 06/20/23 06/20/23 History iron) tablet,delayed release lisinopril 40 mg tablet 20 mg PO DAILY High Blood Pressure 06/20/23 06/20/23 History pantoprazole 40 mg tablet,delayed 40 mg PO DAILY Acid Reflux 06/20/23 06/20/23 History release ranolazine 500 mg tablet,extended 500 mg PO BID Chest Pain 06/20/23 06/20/23 History release,12 hr urea 20 % topical cream 1 applic topical BIDP PRN Dry Skin 06/20/23 06/20/23 History (Ureacin-20) aspirin 81 mg chewable tablet 81 mg PO DAILY #0 tabs 06/21/23 Rx New Prescriptions to Start Prescriptions: Allergies Allergy/AdvReac Type Severity Reaction Status Date / Time No Known Allergies Allergy Verified 03/01/23 19:11 Assessment and Plan *Assessment and plan (1) CKD (chronic kidney disease): Status: Chronic Category: Medical Code(s): N18.9 - Chronic kidney disease, unspecified (2) HLD (hyperlipidemia): Status: Chronic Qualifiers: Hyperlipidemia type: unspecified Qualified Code(s): E78.5 - Hyperlipidemia, unspecified Category: Medical Code(s): E78.5 - Hyperlipidemia, unspecified (3) HTN (hypertension): Status: Acute Qualifiers: Hypertension type: unspecified Qualified Code(s): I10 - Essential (primary) hypertension Category: Medical Code(s): I10 - Essential (primary) hypertension (4) PAF (paroxysmal atrial fibrillation): Status: Acute Category: Medical Code(s): I48.0 - Paroxysmal atrial fibrillation (5) Non-ST elevation [place] (NSTEMI): Status: Acute Category: Medical Code(s): I21.4 - Non-ST elevation (NSTEMI) myocardial infarction (6) CAD (coronary artery disease): Status: Acute Category: Medical Code(s): I25.10 - Atherosclerotic heart disease of [place] coronary artery without angina pectoris Plan CAD NSTEMI -Trop 0.11-0.25-0.09 -EKG negative for acute ischemic changes -sees cards at [place], reports no recent testing -prelim echo shows a normal EF, wall motion abnormality present. Official read is pending. -recommend further evaluation with [facility] for NSTEMI. patient requests transfer to [place] for procedure. -Continue aspirin 81 mg p.o. daily and atorvastatin 80 mg p.o. daily PAF Chadsvasc score is Chadsvasc score A-fib RVR versus SVT -Reportedly converted after vomiting per EMS -Currently in normal sinus rhythm -Continue Eliquis 5 mg p.o. twice daily and diltiazem 140 mg p.o. Hypertension -Currently well-controlled Hyperlipidemia -LDL goal less than 55, continue atorvastatin 80 mg p.o. daily. CV summary 06/21/2023: Recommend left heart catheterization for further evaluation of NSTEMI/coronary artery disease. Patient requesting transfer to [place] for procedure.
--- NOTE | 2023-06-22 15:54 | CARE MANAGER ---
Called and spoke with patient regarding recent discharge. He states that he is doing well, has scheduled his f/u appt with cardiology and has made medication changes prescribed at discharge. He voiced no concerns at time of call.
== END 2023-06-21 14:41 | disposition home or self-care (01) ==
LOC: ER 21:36 → 2ND 21:36
PROVIDERS: Nurse Practitioner Family; Admitting Provider Internal Medicine Adolescent Medicine; Emergency Provider Emergency Medicine; Visit Provider Internal Medicine Adolescent Medicine
DX: R07.9 Chest pain, unspecified (principal); I21.4 Non-ST elevation (NSTEMI) myocardial infarction; I47.10 Supraventricular tachycardia, unspecified; N18.9 Chronic kidney disease, unspecified; E78.5 Hyperlipidemia, unspecified; J44.9 Chronic obstructive pulmonary disease, unspecified; I48.0 Paroxysmal atrial fibrillation; I25.10 Atherosclerotic heart disease of native coronary artery without angina pectoris; Z86.73 Personal history of transient ischemic attack (TIA), and cerebral infarction without residual deficits; I25.2 Old myocardial infarction; I12.9 Hypertensive chronic kidney disease with stage 1 through stage 4 chronic kidney disease, or unspecified chronic kidney disease
CPT/HCPCS: 36415; 71045; 80053; 83690; 83735; 84436; 84443; 84484; 85007; 85025; 87636; 93005; 93306; 99285; G0378